=== PATIENT | female | born 1990 | race Caucasian/White ===

== ENCOUNTER 2022-02-01 11:10 | Inpatient (IN) | payer OTHER, SELFPAY ==
[2022-02-01 11:37] VITALS: BP 147/89; PULSE 104; RESP 16; TEMP 37.6; O2SAT 97; BMI 25.6
[2022-02-01] MEDS: ONDANSETRON 4 MG/2 ML INJ IV ×2 (11:49→18:29)
[2022-02-01 11:59] LABS: Appearance Urine UA CLEAR; Bilirubin Urine UA 1+ (NEGATIVE); Color Urine UA YELLOW; Glucose Urine UA NEGATIVE (Negative); Ketones Urine UA 3+ (NEGATIVE); Leukocyte Esterase Urine UA NEGATIVE (NEGATIVE); Nitrite Urine UA NEGATIVE (Negative); Occult Blood Urine UA NEGATIVE (Negative); Protein Urine UA 1+ (Negative); Urobilinogen Urine UA 0.2 E.U./dL (0.2)
[2022-02-01 12:00] LABS: pH Urine UA 6.5 (4.5-8.0)
[2022-02-01 12:01] LABS: Ictotest Urine Negative (Negative)
[2022-02-01 12:04] LABS: Bacteria Urine None Seen; Culture Indicated Urine Cult Not Indicated; Mucus Urine 2+ (Negative); RBC Urine None Seen (0-5/HPF); WBC Urine None Seen (0-5/HPF)
[2022-02-01 12:05] LABS: Pregnancy Test Urine Negative (Negative)
[2022-02-01 12:17] LABS: COVID19 -Nasal RAPID Negative (Negative)
--- NOTE | 2022-02-01 12:58 | ED_ITS ---
HPI - Nausea/Vomiting/Diarrhea <MAINE Cronin - Last Filed: 02/01/22 16:55> General Chief complaint: Nausea/Vomiting/Diarrhea Stated complaint: Vomiting for 48 hours, upper abd pain Time Seen by Provider: 02/01/22 12:28 Source: patient Mode of arrival: Ambulatory History of Present Illness HPI Narrative: This is a 31-year-old female presents to the emergency department complaining of pain in her upper abdomen which has been over the last 3 days, complains of nausea and vomiting, epigastric pain and denies any other symptoms other than diarrhea. She states she took a COVID test this morning and it was negative, states the only abdominal surgery she is had was a in 2017. She denies fever, chills, dysuria, urinary frequency or urgency. States that her urine was dark in color today. She went to [facility] last night and received a GI cocktail, Zofran, and Ativan and states that it helped with her nausea because she was tired but the GI cocktail was vomited up immediately and the other 2 medications helped with her emesis. She states that they did not do lab work or any other tests. She denies drinking alcohol, states that she uses marijuana occasionally but denies any other substance use. She has a mild fever in triage today at 99.6. Related Data Home Medications Medication Instructions Recorded Confirmed sertraline 50 mg tablet 50 mg PO DAILY 02/01/22 02/01/22 Allergies Allergy/AdvReac Type Severity Reaction Status Date / Time No Known Drug Allergies Allergy Verified 02/01/22 11:37 Review of Systems <MAINE Cronin - Last Filed: 02/01/22 16:55> Review of Systems Narrative: Review of systems is negative for acute abnormalities unless otherwise noted in HPI Patient History <MAINE Cronin - Last Filed: 02/01/22 16:55> Social History household members: spouse and children Exam <MAINE Cronin - Last Filed: 02/01/22 16:55> Narrative Exam Narrative: Reviewed vitals signs and nursing notes. General: cooperative, comfortable, in no acute distress, well groomed HEENT: symmetrical facial expressions, moist mucous membranes Cardiovascular: regular rate and rhythm, no peripheral edema, warm extremities Respiratory: normal effort, able to speak in complete sentences, without wheezing, stridor, or abnormal breath sounds. No retractions or tachypnea. GI: abdomen soft, tender to palpation in her epigastrium, nondistended, without masses, rebound tenderness or exquisite tenderness with exam. No CVA tenderness MSK: moves all extremities, neurovascularly intact, no weakness, normal tone Skin: brisk capillary refill, without pallor or erythema Neuro: normal speech and cognition, A&O x3, ambulatory, clear speech Psych: mental status is grossly normal, congruent mood, normal affect, pleasant and cooperative Initial Vital Signs Initial Vital Signs: Vital Signs Temperature 99.6 F 02/01/22 11:37 Pulse Rate 104 H 02/01/22 11:37 Respiratory Rate 16 02/01/22 11:37 Blood Pressure 147/89 H 02/01/22 11:37 Pulse Oximetry 97 02/01/22 11:37 Oxygen Delivery Method 02/01/22 11:37 <Caryl Ryan MD - Last Filed: 02/02/22 05:10> Initial Vital Signs Initial Vital Signs: Vital Signs Temperature 99.6 F 02/01/22 11:37 Pulse Rate 104 H 02/01/22 11:37 Respiratory Rate 16 02/01/22 11:37 Blood Pressure 147/89 H 02/01/22 11:37 Pulse Oximetry 97 02/01/22 11:37 Oxygen Delivery Method 02/01/22 11:37 Course <MAINE Cronin - Last Filed: 02/01/22 16:55> Orders Ordered: ED Orders 02/02/22 05:00 Complete Blood Count AUTO DIFF DAILY Comprehensive Metabolic Panel DAILY Lipid Panel Routine Magnesium DAILY 02/03/22 05:00 Complete Blood Count AUTO DIFF DAILY Comprehensive Metabolic Panel DAILY Magnesium DAILY 02/04/22 05:00 Complete Blood Count AUTO DIFF DAILY Comprehensive Metabolic Panel DAILY Magnesium DAILY Acetaminophen (Acetaminophen 325 Mg Tablet) 975 mg PO Q8H PRN PRN Reason: Pain, Mild (1-3) Sodium Chloride (Normal Saline 0.9%) 1,000 mls @ 100 mls/hr IV CONT SANCHEZ Last Admin: 02/02/22 04:22 Dose: 100 mls/hr Documented By: Infusion: 02/02/22 04:00 Dose: 100 mls/hr Documented By: Admin: 02/01/22 18:00 Dose: 100 mls/hr Documented By: SINGH Ketorolac Tromethamine (Ketorolac 30 Mg/Ml Vial) 15 mg IV Q6H SANCHEZ Stop: 02/04/22 17:11 Last Admin: 02/01/22 23:00 Dose: Not Given Documented By: Admin: 02/01/22 18:25 Dose: 15 mg Documented By: SINGH Ondansetron HCl (Ondansetron 4 Mg/2 Ml Inj) 4 mg IV Q8HR PRN PRN Reason: Nausea And Vomiting Last Admin: 02/01/22 18:29 Dose: 4 mg Documented By: SINGH Oxycodone HCl (Oxycodone Ir 5 Mg Tablet) 5 mg PO Q4HR PRN PRN Reason: Pain, Moderate (4-6) Discontinued Medications Diazepam (Diazepam 10 Mg/2 Ml Syringe) 2 mg IV NOW ONE Stop: 02/01/22 14:56 Last Admin: 02/01/22 16:30 Dose: Not Given Documented By: ROSA Hydromorphone HCl (Hydromorphone 0.5 Mg Inj) 0.5 mg IV NOW ONE Stop: 02/01/22 13:15 Last Admin: 02/01/22 13:40 Dose: 0.5 mg Documented By: MCKENNA Lactated Ringer's (Lactated Ringers) 1,000 mls @ 1,000 mls/hr IV BOLUS ONE Stop: 02/01/22 14:00 Last Infusion: 02/01/22 15:06 Dose: 0 mls/hr Documented By: Admin: 02/01/22 13:39 Dose: 1,000 mls/hr Documented By: MCKENNA Ketorolac Tromethamine (Ketorolac 30 Mg/Ml Vial) 15 mg IV NOW ONE Stop: 02/01/22 13:14 Last Admin: 02/01/22 13:40 Dose: 15 mg Documented By: MCKENNA Ondansetron HCl (Ondansetron 4 Mg/2 Ml Inj) 4 mg IV NOW ONE Stop: 02/01/22 11:43 Last Admin: 02/01/22 11:49 Dose: 4 mg Documented By: SCOTT Pantoprazole Sodium (Pantoprazole 40 Mg Vial) 20 mg IV NOW ONE Stop: 02/01/22 12:46 Last Admin: 02/01/22 13:39 Dose: 20 mg Documented By: MCKENNA Reevaluation(s) Reevaluation #1: Patient states that her pain feels much better and her vomiting has stopped, she states that she still feels nauseated. Ordered Valium Reevaluation #2: Patient states that her pain is controlled and her vomiting has improved. Consultations Consultation #1: Consultation with Dr. Chapmna for admission, he accepts patient to observation status for pancreatitis, cholelithiasis and intractable nausea and vomiting Vital Signs Vital signs: Vital Signs - 8 hr 02/01/22 11:37 02/01/22 14:52 Temperature 99.6 F Pulse Rate 104 H 74 Respiratory Rate 16 18 Blood Pressure 147/89 H 114/79 Pulse Oximetry 97 100 Oxygen Delivery Method Room Air Room Air <Caryl Ryan MD - Last Filed: 02/02/22 05:10> Orders Ordered: ED Orders 02/02/22 05:00 Complete Blood Count AUTO DIFF DAILY Comprehensive Metabolic Panel DAILY Lipid Panel Routine Magnesium DAILY 02/03/22 05:00 Complete Blood Count AUTO DIFF DAILY Comprehensive Metabolic Panel DAILY Magnesium DAILY 02/04/22 05:00 Complete Blood Count AUTO DIFF DAILY Comprehensive Metabolic Panel DAILY Magnesium DAILY Acetaminophen (Acetaminophen 325 Mg Tablet) 975 mg PO Q8H PRN PRN Reason: Pain, Mild (1-3) Sodium Chloride (Normal Saline 0.9%) 1,000 mls @ 100 mls/hr IV CONT SANCHEZ Last Admin: 02/02/22 04:22 Dose: 100 mls/hr Documented By: Infusion: 02/02/22 04:00 Dose: 100 mls/hr Documented By: Admin: 02/01/22 18:00 Dose: 100 mls/hr Documented By: SINGH Ketorolac Tromethamine (Ketorolac 30 Mg/Ml Vial) 15 mg IV Q6H SANCHEZ Stop: 02/04/22 17:11 Last Admin: 02/01/22 23:00 Dose: Not Given Documented By: Admin: 02/01/22 18:25 Dose: 15 mg Documented By: SINGH Ondansetron HCl (Ondansetron 4 Mg/2 Ml Inj) 4 mg IV Q8HR PRN PRN Reason: Nausea And Vomiting Last Admin: 02/01/22 18:29 Dose: 4 mg Documented By: SINGH Oxycodone HCl (Oxycodone Ir 5 Mg Tablet) 5 mg PO Q4HR PRN PRN Reason: Pain, Moderate (4-6) Discontinued Medications Diazepam (Diazepam 10 Mg/2 Ml Syringe) 2 mg IV NOW ONE Stop: 02/01/22 14:56 Last Admin: 02/01/22 16:30 Dose: Not Given Documented By: ROSA Hydromorphone HCl (Hydromorphone 0.5 Mg Inj) 0.5 mg IV NOW ONE Stop: 02/01/22 13:15 Last Admin: 02/01/22 13:40 Dose: 0.5 mg Documented By: MCKENNA Lactated Ringer's (Lactated Ringers) 1,000 mls @ 1,000 mls/hr IV BOLUS ONE Stop: 02/01/22 14:00 Last Infusion: 02/01/22 15:06 Dose: 0 mls/hr Documented By: Admin: 02/01/22 13:39 Dose: 1,000 mls/hr Documented By: MCKENNA Ketorolac Tromethamine (Ketorolac 30 Mg/Ml Vial) 15 mg IV NOW ONE Stop: 02/01/22 13:14 Last Admin: 02/01/22 13:40 Dose: 15 mg Documented By: MCKENNA Ondansetron HCl (Ondansetron 4 Mg/2 Ml Inj) 4 mg IV NOW ONE Stop: 02/01/22 11:43 Last Admin: 02/01/22 11:49 Dose: 4 mg Documented By: SCOTT Pantoprazole Sodium (Pantoprazole 40 Mg Vial) 20 mg IV NOW ONE Stop: 02/01/22 12:46 Last Admin: 02/01/22 13:39 Dose: 20 mg Documented By: MCKENNA Vital Signs Vital signs: Vital Signs - 8 hr 02/01/22 11:37 02/01/22 14:52 Temperature 99.6 F Pulse Rate 104 H 74 Respiratory Rate 16 18 Blood Pressure 147/89 H 114/79 Pulse Oximetry 97 100 Oxygen Delivery Method Room Air Room Air MDM - Nausea/Vomiting/Diarrhea <MAINE Cronin - Last Filed: 02/01/22 16:55> Lab Data Result diagrams: 02/01/22 11:42 02/01/22 11:42 Labs: Lab Results 02/01/22 02/01/22 02/01/22 Range/Units 11:35 11:35 11:35 WBC (4.5-11.0) X10^3/uL RBC (4.0-5.2) X10^6/uL Hgb (12.0-16.0) g/dL Hct (36-46) % MCV (80-100) fL MCH (26-34) PG MCHC (30-36) % RDW (11.6-14.8) % Plt Count (150-400) X10^3/uL Neut % (Auto) (50-75) % Lymph % (Auto) (25-40) % [place] % (Auto) (3-14) % Eos % (Auto) (2-4) % Baso % (Auto) (0-2) % Neut # (Auto) (0624-8858) /uL Lymph # (Auto) (7070-1682) /uL [place] # (Auto) (0-900) /uL Eos # (Auto) (0-450) /uL Baso # (Auto) (0-100) /uL PT (10.1-12.7) SECONDS INR (0.9-1.3) APTT (26-36) SECONDS Sodium (137-145) mmol/L Potassium (3.4-5.1) mmol/L Chloride (98-107) mmol/L Carbon Dioxide (22-32) mmol/L BUN (7-17) mg/dL Creatinine (0.52-1.04) mg/dL Estimated GFR (>60) mL/min BUN/Creatinine Ratio (6-22) Glucose (70-100) mg/dL Calcium (8.4-10.2) mg/dL Total Bilirubin (0.2-1.3) mg/dL AST (14-36) IU/L ALT (<35) IU/L Alkaline Phosphatase (38-126) U/L C-Reactive Protein (<1.0) mg/dL Total Protein (6.3-8.2) g/dL Albumin (3.5-5.0) g/dL Globulin (1.7-4.1) g/dL Albumin/Globulin Ratio (1.0-2.8) Lipase Urine Color Yellow Urine Appearance Clear Urine pH 6.5 (4.5-8.0) Ur Specific [place] 1.020 (1.000-1.035) Urine Protein 1+ H (Negative) Urine Glucose (UA) Negative (Negative) g/dL Urine Ketones 3+ H (NEGATIVE) Urine Occult Blood Negative (Negative) Urine Nitrate Negative (Negative) Urine Bilirubin 1+ H (NEGATIVE) Ur Bilirubin Confirm Negative (Negative) Urine Urobilinogen 0.2 (0.2) E.U./dL Ur Leukocyte Esterase Negative (NEGATIVE) Urine RBC None seen (0-5/HPF) Urine WBC None seen (0-5/HPF) Urine Bacteria None seen (None) Urine Mucus 2+ H (Negative) Ur Culture Indicated? Cult not indicated Urine Test Negative (Negative) SARS-CoV-2 (PCR) Negative (Negative) 02/01/22 02/01/22 02/01/22 Range/Units 11:40 11:40 11:42 WBC 11.0 (4.5-11.0) X10^3/uL RBC 5.04 (4.0-5.2) X10^6/uL Hgb 14.0 (12.0-16.0) g/dL Hct 41.0 (36-46) % MCV 81.4 (80-100) fL MCH 27.7 (26-34) PG MCHC 34.0 (30-36) % RDW 14.1 (11.6-14.8) % Plt Count 220 (150-400) X10^3/uL Neut % (Auto) 80.9 H (50-75) % Lymph % (Auto) 11.5 L (25-40) % [place] % (Auto) 7.0 (3-14) % Eos % (Auto) 0.5 L (2-4) % Baso % (Auto) 0.1 (0-2) % Neut # (Auto) 8900 H (9221-2901) /uL Lymph # (Auto) 1300 (2574-4782) /uL [place] # (Auto) 800 (0-900) /uL Eos # (Auto) 100 (0-450) /uL Baso # (Auto) 0 (0-100) /uL PT (10.1-12.7) SECONDS INR (0.9-1.3) APTT (26-36) SECONDS Sodium (137-145) mmol/L Potassium (3.4-5.1) mmol/L Chloride (98-107) mmol/L Carbon Dioxide (22-32) mmol/L BUN (7-17) mg/dL Creatinine (0.52-1.04) mg/dL Estimated GFR (>60) mL/min BUN/Creatinine Ratio (6-22) Glucose (70-100) mg/dL Calcium (8.4-10.2) mg/dL Total Bilirubin (0.2-1.3) mg/dL AST (14-36) IU/L ALT (<35) IU/L Alkaline Phosphatase (38-126) U/L C-Reactive Protein 1.1 H (<1.0) mg/dL Total Protein (6.3-8.2) g/dL Albumin (3.5-5.0) g/dL Globulin (1.7-4.1) g/dL Albumin/Globulin Ratio (1.0-2.8) Lipase Cancelled Urine Color Urine Appearance Urine pH (4.5-8.0) Ur Specific [place] (1.000-1.035) Urine Protein (Negative) Urine Glucose (UA) (Negative) g/dL Urine Ketones (NEGATIVE) Urine Occult Blood (Negative) Urine Nitrate (Negative) Urine Bilirubin (NEGATIVE) Ur Bilirubin Confirm (Negative) Urine Urobilinogen (0.2) E.U./dL Ur Leukocyte Esterase (NEGATIVE) Urine RBC (0-5/HPF) Urine WBC (0-5/HPF) Urine Bacteria (None) Urine Mucus (Negative) Ur Culture Indicated? Urine Test (Negative) SARS-CoV-2 (PCR) (Negative) 02/01/22 02/01/22 Range/Units 11:42 11:42 WBC (4.5-11.0) X10^3/uL RBC (4.0-5.2) X10^6/uL Hgb (12.0-16.0) g/dL Hct (36-46) % MCV (80-100) fL MCH (26-34) PG MCHC (30-36) % RDW (11.6-14.8) % Plt Count (150-400) X10^3/uL Neut % (Auto) (50-75) % Lymph % (Auto) (25-40) % [place] % (Auto) (3-14) % Eos % (Auto) (2-4) % Baso % (Auto) (0-2) % Neut # (Auto) (7056-2107) /uL Lymph # (Auto) (8661-0317) /uL [place] # (Auto) (0-900) /uL Eos # (Auto) (0-450) /uL Baso # (Auto) (0-100) /uL PT 13.6 H (10.1-12.7) SECONDS INR 1.2 (0.9-1.3) APTT 36 (26-36) SECONDS Sodium 140 (137-145) mmol/L Potassium 3.7 (3.4-5.1) mmol/L Chloride 97 L (98-107) mmol/L Carbon Dioxide 27 (22-32) mmol/L BUN 15 (7-17) mg/dL Creatinine 0.91 (0.52-1.04) mg/dL Estimated GFR > 60 (>60) mL/min BUN/Creatinine Ratio 16.5 (6-22) Glucose 100 (70-100) mg/dL Calcium 10.2 (8.4-10.2) mg/dL Total Bilirubin 0.7 (0.2-1.3) mg/dL AST 37 H (14-36) IU/L ALT 20 (<35) IU/L Alkaline Phosphatase 62 (38-126) U/L C-Reactive Protein (<1.0) mg/dL Total Protein 8.8 H (6.3-8.2) g/dL Albumin 5.2 H (3.5-5.0) g/dL Globulin 3.6 (1.7-4.1) g/dL Albumin/Globulin Ratio 1.4 (1.0-2.8) Lipase 2310 H Urine Color Urine Appearance Urine pH (4.5-8.0) Ur Specific [place] (1.000-1.035) Urine Protein (Negative) Urine Glucose (UA) (Negative) g/dL Urine Ketones (NEGATIVE) Urine Occult Blood (Negative) Urine Nitrate (Negative) Urine Bilirubin (NEGATIVE) Ur Bilirubin Confirm (Negative) Urine Urobilinogen (0.2) E.U./dL Ur Leukocyte Esterase (NEGATIVE) Urine RBC (0-5/HPF) Urine WBC (0-5/HPF) Urine Bacteria (None) Urine Mucus (Negative) Ur Culture Indicated? Urine Test (Negative) SARS-CoV-2 (PCR) (Negative) Imaging Data US - abdomen: Radiologist's Impression: PROCEDURE:? US ABDOMEN LIMITED ? INDICATIONS:? RIGHT UPPER QUADRANT PAIN ?GASTRITIS VERSUS CHOLECYSTITIS ? TECHNIQUE:? Real-time scanning was performed of the abdominal and retroperitoneal organs, with image documentation.? ? COMPARISON:? None. ? FINDINGS:? ? Liver:? Liver is normal in size and homogeneous in echotexture.? ? Gallbladder:? Stones are seen in dependent portion of gallbladder lumen.? There is no gallbladder wall thickening or pericholecystic fluid.? No sonographic Dasilva sign. ? Biliary ducts:? Intrahepatic bile ducts are non-dilated.? Extrahepatic bile duct caliber measures 2.7 mm.? Normal is 6-7 mm or less in diameter, or 10 mm or less post-cholecystectomy.? ? Pancreas:? Visualized portions of the pancreas are sonographically normal.? Miscellaneous:? No free abdominal fluid.? ? ? IMPRESSION:? Cholelithiasis without sonographic evidence of acute cholecystitis.? No biliary ductal dilatation. ? ? Dictated by: Rosalio Orta M.D. on 02/01/2022 at 13:48 ? ? Approved by: Rosalio Orta M.D. on 02/01/2022 at 14:09 ? CT scan - abdomen/pelvis: Radiologist's Impression: PROCEDURE:? CT ABDOMEN PELVIS W CON ? INDICATIONS:? pancreatitis? ? TECHNIQUE:? After the administration of oral and IV contrast, axial sections were acquired from the lung bases to the pubic symphysis.? Coronal and sagittal reformats were performed.? For radiation dose reduction, the following was used:? automated exposure control, adjustment of mA and/or kV according to patient size. ? COMPARISON:? [facility], US ABDOMEN LIMITED, 02/01/2022, 13:29. ? FINDINGS:? Image quality:? Excellent.? ? Lung bases:? Unremarkable.? ? Heart:? No significant findings. ? ? ABDOMEN: Liver:? Unremarkable.? ? Gallbladder:? Air containing stones are seen in dependent portion of gallbladder lumen.? No gallbladder wall thickening or pericholecystic fluid. Biliary ducts:? Unremarkable.? ? Pancreas:? No discrete pancreatic lesion.? No peripancreatic inflammatory changes.? ? Spleen:? Unremarkable.? ? Adrenal Glands:? Unremarkable.? ? Kidneys and Ureters:? Unremarkable.? ? ? Stomach and Bowel:? Stomach, small bowel loops, and colon are unremarkable.? Appendix is visualized and is within normal limits. Peritoneum:? No abnormal intraperitoneal fluid.? No free air.? ? Ventral Wall: ? No hernia.? Abdominal Nodes:? No retroperitoneal or mesenteric adenopathy by size criteria.? Vessels:? Aorta and inferior vena cava are normal in size.? ? PELVIS: Pelvic Organs:? Unremarkable.? ? Bladder:? Unremarkable.? ? Pelvic Nodes: No enlarged lymph nodes.? Miscellaneous: No inguinal hernias are seen. ? ? ? Bones:? No suspicious bony lesion.? No acute vertebral body compression fract ure. ? ? IMPRESSION:? ? 1. Cholelithiasis without CT evidence of acute cholecystitis. 2. No biliary ductal dilatation. 3.? Pancreas is within normal limits.? No peripancreatic inflammatory changes or fluid.? Please correlate with patient's amylase and lipase levels. 4. No bowel obstruction.? No abnormal bowel wall thickening.? No free fluid or free air.? Normal appendix.? ? ? Dictated by: Rosalio Orta M.D. on 02/01/2022 at 14:33 ? ? Approved by: Rosalio Orta M.D. on 02/01/2022 at 14:36 ? [facility] Narrative Medical decision making narrative: This is a 31-year-old female presents to the emergency department for vomiting for the last 2-3 days with epigastric pain, she presented with a mild fever, tachycardia with a rate of 104, with normal vital signs in states that she does not know why she has been vomiting. Only abdominal surgery history is a C- section 2017. Patient does not drink alcohol. Her lab work overall is reassuring, there is no leukocytosis or anemia, no electrolyte abnormalities however her CRP is mildly elevated at 1.1, lipase is elevated at 2310, her urine shows protein, ketones and bilirubin but was negative for leukocyte esterase bacteria, her COVID PCR is negative. Abdominal ultrasound shows cholelithiasis without cholecystitis, no biliary ductal dilatation, extrahepatic bile duct shelby margie measures 2.[address] abdomen pelvis shows cholelithiasis without CT evidence of cholecystitis, no biliary ductal dilatation, pancreas was evaluated within normal limits and no peripancreatic inflammatory changes or fluid. Patient does not have a bowel obstruction and no abnormal bowel wall thickening, no free fluid or free air with a normal appendix. Clinically patient has improved from her nausea and vomiting but still remains nauseated, she has had occasional emesis since being treated with Zofran initially. She was given 1 L of lactated Ringer's, later given 2 mg of IV Valium for nausea, her pain was treated with hydromorphone and ketorolac. Consultation with Dr. Chapman for admission for intractable nausea and vomiting, pancreatitis with cholelithiasis and he accepts patient to observation status. Patient was informed of lab and imaging results, pertinent diagnoses, consulting physicians, and treatment plan. I have spoken with the patient in regard to admission, patient understands and agrees. I have communicated the patient's evaluation and treatment plan to the admitting physician who agrees with admission. All questions answered at this time. <Caryl Ryan MD - Last Filed: 02/02/22 05:10> Lab Data Labs: Lab Results 02/01/22 02/01/22 02/01/22 Range/Units 11:35 11:35 11:35 WBC (4.5-11.0) X10^3/uL RBC (4.0-5.2) X10^6/uL Hgb (12.0-16.0) g/dL Hct (36-46) % MCV (80-100) fL MCH (26-34) PG MCHC (30-36) % RDW (11.6-14.8) % Plt Count (150-400) X10^3/uL Neut % (Auto) (50-75) % Lymph % (Auto) (25-40) % [place] % (Auto) (3-14) % Eos % (Auto) (2-4) % Baso % (Auto) (0-2) % Neut # (Auto) (9178-4030) /uL Lymph # (Auto) (1481-6196) /uL [place] # (Auto) (0-900) /uL Eos # (Auto) (0-450) /uL Baso # (Auto) (0-100) /uL PT (10.1-12.7) SECONDS INR (0.9-1.3) APTT (26-36) SECONDS Sodium (137-145) mmol/L Potassium (3.4-5.1) mmol/L Chloride (98-107) mmol/L Carbon Dioxide (22-32) mmol/L BUN (7-17) mg/dL Creatinine (0.52-1.04) mg/dL Estimated GFR (>60) mL/min BUN/Creatinine Ratio (6-22) Glucose (70-100) mg/dL Calcium (8.4-10.2) mg/dL Total Bilirubin (0.2-1.3) mg/dL AST (14-36) IU/L ALT (<35) IU/L Alkaline Phosphatase (38-126) U/L C-Reactive Protein (<1.0) mg/dL Total Protein (6.3-8.2) g/dL Albumin (3.5-5.0) g/dL Globulin (1.7-4.1) g/dL Albumin/Globulin Ratio (1.0-2.8) Lipase Urine Color Yellow Urine Appearance Clear Urine pH 6.5 (4.5-8.0) Ur Specific [place] 1.020 (1.000-1.035) Urine Protein 1+ H (Negative) Urine Glucose (UA) Negative (Negative) g/dL Urine Ketones 3+ H (NEGATIVE) Urine Occult Blood Negative (Negative) Urine Nitrate Negative (Negative) Urine Bilirubin 1+ H (NEGATIVE) Ur Bilirubin Confirm Negative (Negative) Urine Urobilinogen 0.2 (0.2) E.U./dL Ur Leukocyte Esterase Negative (NEGATIVE) Urine RBC None seen (0-5/HPF) Urine WBC None seen (0-5/HPF) Urine Bacteria None seen (None) Urine Mucus 2+ H (Negative) Ur Culture Indicated? Cult not indicated Urine Test Negative (Negative) SARS-CoV-2 (PCR) Negative (Negative) 02/01/22 02/01/22 02/01/22 Range/Units 11:40 11:40 11:42 WBC 11.0 (4.5-11.0) X10^3/uL RBC 5.04 (4.0-5.2) X10^6/uL Hgb 14.0 (12.0-16.0) g/dL Hct 41.0 (36-46) % MCV 81.4 (80-100) fL MCH 27.7 (26-34) PG MCHC 34.0 (30-36) % RDW 14.1 (11.6-14.8) % Plt Count 220 (150-400) X10^3/uL Neut % (Auto) 80.9 H (50-75) % Lymph % (Auto) 11.5 L (25-40) % [place] % (Auto) 7.0 (3-14) % Eos % (Auto) 0.5 L (2-4) % Baso % (Auto) 0.1 (0-2) % Neut # (Auto) 8900 H (3546-6290) /uL Lymph # (Auto) 1300 (8024-5467) /uL [place] # (Auto) 800 (0-900) /uL Eos # (Auto) 100 (0-450) /uL Baso # (Auto) 0 (0-100) /uL PT (10.1-12.7) SECONDS INR (0.9-1.3) APTT (26-36) SECONDS Sodium (137-145) mmol/L Potassium (3.4-5.1) mmol/L Chloride (98-107) mmol/L Carbon Dioxide (22-32) mmol/L BUN (7-17) mg/dL Creatinine (0.52-1.04) mg/dL Estimated GFR (>60) mL/min BUN/Creatinine Ratio (6-22) Glucose (70-100) mg/dL Calcium (8.4-10.2) mg/dL Total Bilirubin (0.2-1.3) mg/dL AST (14-36) IU/L ALT (<35) IU/L Alkaline Phosphatase (38-126) U/L C-Reactive Protein 1.1 H (<1.0) mg/dL Total Protein (6.3-8.2) g/dL Albumin (3.5-5.0) g/dL Globulin (1.7-4.1) g/dL Albumin/Globulin Ratio (1.0-2.8) Lipase Cancelled Urine Color Urine Appearance Urine pH (4.5-8.0) Ur Specific [place] (1.000-1.035) Urine Protein (Negative) Urine Glucose (UA) (Negative) g/dL Urine Ketones (NEGATIVE) Urine Occult Blood (Negative) Urine Nitrate (Negative) Urine Bilirubin (NEGATIVE) Ur Bilirubin Confirm (Negative) Urine Urobilinogen (0.2) E.U./dL Ur Leukocyte Esterase (NEGATIVE) Urine RBC (0-5/HPF) Urine WBC (0-5/HPF) Urine Bacteria (None) Urine Mucus (Negative) Ur Culture Indicated? Urine Test (Negative) SARS-CoV-2 (PCR) (Negative) 02/01/22 02/01/22 Range/Units 11:42 11:42 WBC (4.5-11.0) X10^3/uL RBC (4.0-5.2) X10^6/uL Hgb (12.0-16.0) g/dL Hct (36-46) % MCV (80-100) fL MCH (26-34) PG MCHC (30-36) % RDW (11.6-14.8) % Plt Count (150-400) X10^3/uL Neut % (Auto) (50-75) % Lymph % (Auto) (25-40) % [place] % (Auto) (3-14) % Eos % (Auto) (2-4) % Baso % (Auto) (0-2) % Neut # (Auto) (4459-4741) /uL Lymph # (Auto) (1032-7551) /uL [place] # (Auto) (0-900) /uL Eos # (Auto) (0-450) /uL Baso # (Auto) (0-100) /uL PT 13.6 H (10.1-12.7) SECONDS INR 1.2 (0.9-1.3) APTT 36 (26-36) SECONDS Sodium 140 (137-145) mmol/L Potassium 3.7 (3.4-5.1) mmol/L Chloride 97 L (98-107) mmol/L Carbon Dioxide 27 (22-32) mmol/L BUN 15 (7-17) mg/dL Creatinine 0.91 (0.52-1.04) mg/dL Estimated GFR > 60 (>60) mL/min BUN/Creatinine Ratio 16.5 (6-22) Glucose 100 (70-100) mg/dL Calcium 10.2 (8.4-10.2) mg/dL Total Bilirubin 0.7 (0.2-1.3) mg/dL AST 37 H (14-36) IU/L ALT 20 (<35) IU/L Alkaline Phosphatase 62 (38-126) U/L C-Reactive Protein (<1.0) mg/dL Total Protein 8.8 H (6.3-8.2) g/dL Albumin 5.2 H (3.5-5.0) g/dL Globulin 3.6 (1.7-4.1) g/dL Albumin/Globulin Ratio 1.4 (1.0-2.8) Lipase 2310 H Urine Color Urine Appearance Urine pH (4.5-8.0) Ur Specific [place] (1.000-1.035) Urine Protein (Negative) Urine Glucose (UA) (Negative) g/dL Urine Ketones (NEGATIVE) Urine Occult Blood (Negative) Urine Nitrate (Negative) Urine Bilirubin (NEGATIVE) Ur Bilirubin Confirm (Negative) Urine Urobilinogen (0.2) E.U./dL Ur Leukocyte Esterase (NEGATIVE) Urine RBC (0-5/HPF) Urine WBC (0-5/HPF) Urine Bacteria (None) Urine Mucus (Negative) Ur Culture Indicated? Urine Test (Negative) SARS-CoV-2 (PCR) (Negative) Discharge Plan Departure Patient Disposition: Admitted as Observation Clinical Impression: Intractable nausea and vomiting Pancreatitis, acute Qualifiers: Pancreatitis type: unspecified pancreatitis type Acute pancreatitis complication: unspecified Qualified Code(s): K85.90 - Acute pancreatitis without necrosis or infection, unspecified Cholelithiases Qualifiers: Cholelithiasis location: gallbladder Cholecystitis presence: without cholecystitis Biliary obstruction: without biliary obstruction Qualified Code(s): K80.20 - Calculus of gallbladder without cholecystitis without obstruction Admit Date/Time: 02/01/22 16:24 Admit Provider: Nathaniel Escobar <Caryl Ryan MD - Last Filed: 02/02/22 05:10> Cosign ED Attending Cosignature Attestation: I was immediately available in the department for consultation throughout this patient's visit. I agree with documentation as above. Caryl Ryan MD
--- NOTE | 2022-02-01 13:01 | DI.US.S_ITS ---
PROCEDURE: US ABDOMEN LIMITED INDICATIONS: RIGHT UPPER QUADRANT PAIN ?GASTRITIS VERSUS CHOLECYSTITIS TECHNIQUE: Real-time scanning was performed of the abdominal and retroperitoneal organs, with image documentation. COMPARISON: None. FINDINGS: Liver: Liver is normal in size and homogeneous in echotexture. Gallbladder: Stones are seen in dependent portion of gallbladder lumen. There is no gallbladder wall thickening or pericholecystic fluid. No sonographic Dasilva sign. Biliary ducts: Intrahepatic bile ducts are non-dilated. Extrahepatic bile duct caliber measures 2.7 mm. Normal is 6-7 mm or less in diameter, or 10 mm or less post-cholecystectomy. Pancreas: Visualized portions of the pancreas are sonographically normal. Miscellaneous: No free abdominal fluid. IMPRESSION: Cholelithiasis without sonographic evidence of acute cholecystitis. No biliary ductal dilatation. Dictated by: Rosalio Orta M.D. on 02/01/2022 at 13:48 Approved by: Rosalio Orta M.D. on 02/01/2022 at 14:09
[2022-02-01 13:05] LABS: Add Manual Diff / Slide Review NO; Basophils Absolute Auto 0 /uL (0-100); Basophils Percent Auto 0.1 % (0-2); Eosinophils Absolute Auto 100 /uL (0-450); Eosinophils Percent Auto 0.5 % (2-4); Lymphocytes Absolute Auto 1300 /uL (1100-4500); Lymphocytes Percent Auto 11.5 % (25-40); Mean Corpuscular Hemoglobin 27.7 PG (26-34); Mean Corpuscular Volume 81.4 fL (80-100); Monocytes Absolute Auto 800 /uL (0-900); Neutrophils Absolute Auto 8900 /uL (1500-7000); Neutrophils Percent Auto 80.9 % (50-75); Platelet Count 220 X10^3/uL (150-400); Red Blood Cell Count 5.04 X10^6/uL (4.0-5.2); Red Cell Distribution Width 14.1 % (11.6-14.8)
[2022-02-01 13:06] LABS: C-Reactive Protein Quant 1.1 mg/dL (<1.0)
[2022-02-01 13:06] LABS: INR 1.2 (0.9-1.3); Prothrombin Time 13.6 SECONDS (10.1-12.7)
[2022-02-01 13:08] LABS: PTT Partial Thromboplastin Tim 36 SECONDS (26-36)
[2022-02-01 13:14] LABS: Alanine Aminotransferase 20 IU/L (<35); Albumin 5.2 g/dL (3.5-5.0); Albumin Globulin Ratio 1.4 (1.0-2.8); Alkaline Phosphatase 62 U/L (38-126); Aspartate Aminotransferase 37 IU/L (14-36); BUN Creatinine Ratio 16.5 (6-22); Bilirubin Total 0.7 mg/dL (0.2-1.3); Blood Urea Nitrogen 15 mg/dL (7-17); Calcium 10.2 mg/dL (8.4-10.2); Carbon Dioxide 27 mmol/L (22-32); Chloride 97 mmol/L (98-107); Estimated Glomerular Filt Rate > 60 mL/min (>60); Globulin 3.6 g/dL (1.7-4.1); Glucose 100 mg/dL (70-100); HEMOLYSIS < 15 (0-50); Potassium 3.7 mmol/L (3.4-5.1); Sodium 140 mmol/L (137-145); Total Protein 8.8 g/dL (6.3-8.2)
[2022-02-01 13:15] LABS: Lipase 2310 U/L (23-300)
[2022-02-01] MEDS: PANTOPRAZOLE 40 MG VIAL 20 MG IV (13:39)
[2022-02-01] MEDS: LACTATED RINGERS 1,000 ML 1000 ML IV (13:39)
[2022-02-01] MEDS: KETOROLAC 30 MG/ML VIAL 15 MG IV ×2 (13:40→18:25)
[2022-02-01] MEDS: HYDROMORPHONE 0.5 MG INJ IV (13:40)
--- NOTE | 2022-02-01 13:44 | DI.CT.S_ITS ---
PROCEDURE: CT ABDOMEN PELVIS W CON INDICATIONS: pancreatitis? TECHNIQUE: After the administration of oral and IV contrast, axial sections were acquired from the lung bases to the pubic symphysis. Coronal and sagittal reformats were performed. For radiation dose reduction, the following was used: automated exposure control, adjustment of mA and/or kV according to patient size. COMPARISON: [facility], , US ABDOMEN LIMITED, 02/01/2022, 13:29. FINDINGS: Image quality: Excellent. Lung bases: Unremarkable. Heart: No significant findings. ABDOMEN: Liver: Unremarkable. Gallbladder: Air containing stones are seen in dependent portion of gallbladder lumen. No gallbladder wall thickening or pericholecystic fluid. Biliary ducts: Unremarkable. Pancreas: No discrete pancreatic lesion. No peripancreatic inflammatory changes. Spleen: Unremarkable. Adrenal Glands: Unremarkable. Kidneys and Ureters: Unremarkable. Stomach and Bowel: Stomach, small bowel loops, and colon are unremarkable. Appendix is visualized and is within normal limits. Peritoneum: No abnormal intraperitoneal fluid. No free air. Ventral Wall: No hernia. Abdominal Nodes: No retroperitoneal or mesenteric adenopathy by size criteria. Vessels: Aorta and inferior vena cava are normal in size. PELVIS: Pelvic Organs: Unremarkable. Bladder: Unremarkable. Pelvic Nodes: No enlarged lymph nodes. Miscellaneous: No inguinal hernias are seen. Bones: No suspicious bony lesion. No acute vertebral body compression fracture. IMPRESSION: 1. Cholelithiasis without CT evidence of acute cholecystitis. 2. No biliary ductal dilatation. 3. Pancreas is within normal limits. No peripancreatic inflammatory changes or fluid. Please correlate with patient's amylase and lipase levels. 4. No bowel obstruction. No abnormal bowel wall thickening. No free fluid or free air. Normal appendix. Dictated by: Rosalio Orta M.D. on 02/01/2022 at 14:33 Approved by: Rosalio Orta M.D. on 02/01/2022 at 14:36
[2022-02-01 14:52] VITALS: BP 114/79; PULSE 74; RESP 18; O2SAT 100
[2022-02-01 16:41] VITALS: BP 115/81; PULSE 77; RESP 16; O2SAT 99
[2022-02-01 17:01] VITALS: BMI 25.6
[2022-02-01 17:12] VITALS: BP 135/88; PULSE 86; RESP 22; TEMP 36.3; O2SAT 100
[2022-02-01] MEDS: SODIUM CHLORIDE 0.9% 1,000 ML 100 ML IV (18:00)
--- NOTE | 2022-02-01 19:40 | PC.NURSE ---
pt Arrived from ED at 1710 settled into room, c/o nausea and mild abdominal pain. Able to tolerate minimal amounts of clear liquid. NS at 100ml/hr
[2022-02-01 20:16] VITALS: BP 128/84; PULSE 57; RESP 18; TEMP 35.9; O2SAT 100
--- NOTE | 2022-02-01 21:21 | P.HP_ITS ---
History of Present Illness History of Present Illness Date Patient Seen: 02/01/22 Time Patient Seen: 20:00 Chief complaint: Vomiting for 48 hours, upper abd pain Narrative: Ms. Núñez is a 31W with PMH of depression who presents to the hospital with nausea, vomiting, abdominal pain. She was in a normal state of health but over the last couple days have developed first nausea, diarrhea, vomiting, and then started developing epigastric pain. She had no fevers/chills. She has no sick contacts. She presented to the ED at another hospital yesterday and received symptomatic medications with ativan, zofran and was ultimately discharged home. She continued to feel poorly with continued abdominal pain, nausea, and vomiting and so presented to the hospital today. She does not drink alcohol. She has no new medications, or herbal supplements. Only medication sertraline. In the ED workup was done, vitals notable for temp 99.6, heart rate 104, blood pressure 147/89. Labs notable for WBC 11, hgb 14, plts 220. Lipase 2310. AST 37/ALT 20, bili 0.7. Ultrasound abdomen showed cholelithiasis with no biliary duct dilation. CT showed normal pancreas, cholelithiasis with no cholecystitis. She was given fluids, valium, dilaudid, toradol and admitted for further tr eatment. Patient History Family & Social History Social History: household members spouse,children Prior Living Arrangements House Safety & Behavioral: Feels Safe in Current Yes Environment Been Physically Hurt or No Threatened By a Person Tobacco & Substance use: Tobacco type cannabis/marijuana alcohol intake frequency holiday/special occasion Substance Use Type marijuana Meds Home Medications and Allergies Home Medications Medication Instructions Recorded Confirmed Type sertraline 50 mg tablet 50 mg PO DAILY 02/01/22 02/01/22 History Allergies Allergy/AdvReac Type Severity Reaction Status Date / Time No Known Drug Allergies Allergy Verified 02/01/22 11:37 Review of Systems Review of Systems Narrative: 14 systems reviewed and negative aside from what is noted in HPI Exam Vital Signs (past 8 hours): - 02/01/22 14:52 02/01/22 16:41 02/01/22 17:12 Temperature 97.4 F L Pulse Rate 74 77 86 Respiratory Rate 18 16 22 Blood Pressure 114/79 115/81 135/88 Pulse Oximetry 100 99 100 Oxygen Delivery Method Room Air Room Air Oxygen Flow Rate 0 02/01/22 17:12 02/01/22 20:16 02/01/22 19:00 Temperature 96.7 F L Pulse Rate 57 L Respiratory Rate 18 Blood Pressure 128/84 Pulse Oximetry 100 100 Oxygen Delivery Method Room Air Room Air Oxygen Flow Rate 0 02/01/22 21:12 Temperature Pulse Rate Respiratory Rate Blood Pressure Pulse Oximetry Oxygen Delivery Method Room Air Oxygen Flow Rate Oxygen Delivery Method Room Air Oxygen Flow Rate 0 Narrative Exam Narrative: GEN: distress due pain and nausea HEENT: moist mucous membranes, PERRL NECK: trachea midline, no JVD CV: regular rate and rhythm, no murmurs PULM: clear bilaterally, no wheezes, rhonchi, rales ABD: soft, tender in epigastrum, no rebound/guarding, normal bowel sounds EXT: warm and well perfused, with no edema NEURO: awake, alert, oriented, no focal deficits Objective Labs Result Diagrams: 02/01/22 11:42 02/01/22 11:42 Labs: Laboratory Results - last 24 hr 02/01/22 02/01/22 02/01/22 11:35 11:35 11:35 WBC RBC Hgb Hct MCV MCH MCHC RDW Plt Count Neut % (Auto) Lymph % (Auto) [place] % (Auto) Eos % (Auto) Baso % (Auto) Neut # (Auto) Lymph # (Auto) [place] # (Auto) Eos # (Auto) Baso # (Auto) PT INR APTT Sodium Potassium Chloride Carbon Dioxide BUN Creatinine Estimated GFR BUN/Creatinine Ratio Glucose Calcium Total Bilirubin AST ALT Alkaline Phosphatase C-Reactive Protein Total Protein Albumin Globulin Albumin/Globulin Ratio Lipase Urine Color Yellow Urine Appearance Clear Urine pH 6.5 Ur Specific [place] 1.020 Urine Protein 1+ H Urine Glucose (UA) Negative Urine Ketones 3+ H Urine Occult Blood Negative Urine Nitrate Negative Urine Bilirubin 1+ H Ur Bilirubin Confirm Negative Urine Urobilinogen 0.2 Ur Leukocyte Esterase Negative Urine RBC None seen Urine WBC None seen Urine Bacteria None seen Urine Mucus 2+ H Ur Culture Indicated? Cult not indicated Urine Test Negative SARS-CoV-2 (PCR) Negative 02/01/22 02/01/22 02/01/22 11:40 11:40 11:42 WBC 11.0 RBC 5.04 Hgb 14.0 Hct 41.0 MCV 81.4 MCH 27.7 MCHC 34.0 RDW 14.1 Plt Count 220 Neut % (Auto) 80.9 H Lymph % (Auto) 11.5 L [place] % (Auto) 7.0 Eos % (Auto) 0.5 L Baso % (Auto) 0.1 Neut # (Auto) 8900 H Lymph # (Auto) 1300 [place] # (Auto) 800 Eos # (Auto) 100 Baso # (Auto) 0 PT INR APTT Sodium Potassium Chloride Carbon Dioxide BUN Creatinine Estimated GFR BUN/Creatinine Ratio Glucose Calcium Total Bilirubin AST ALT Alkaline Phosphatase C-Reactive Protein 1.1 H Total Protein Albumin Globulin Albumin/Globulin Ratio Lipase Cancelled Urine Color Urine Appearance Urine pH Ur Specific [place] Urine Protein Urine Glucose (UA) Urine Ketones Urine Occult Blood Urine Nitrate Urine Bilirubin Ur Bilirubin Confirm Urine Urobilinogen Ur Leukocyte Esterase Urine RBC Urine WBC Urine Bacteria Urine Mucus Ur Culture Indicated? Urine Test SARS-CoV-2 (PCR) 02/01/22 02/01/22 11:42 11:42 WBC RBC Hgb Hct MCV MCH MCHC RDW Plt Count Neut % (Auto) Lymph % (Auto) [place] % (Auto) Eos % (Auto) Baso % (Auto) Neut # (Auto) Lymph # (Auto) [place] # (Auto) Eos # (Auto) Baso # (Auto) PT 13.6 H INR 1.2 APTT 36 Sodium 140 Potassium 3.7 Chloride 97 L Carbon Dioxide 27 BUN 15 Creatinine 0.91 Estimated GFR > 60 BUN/Creatinine Ratio 16.5 Glucose 100 Calcium 10.2 Total Bilirubin 0.7 AST 37 H ALT 20 Alkaline Phosphatase 62 C-Reactive Protein Total Protein 8.8 H Albumin 5.2 H Globulin 3.6 Albumin/Globulin Ratio 1.4 Lipase 2310 H Urine Color Urine Appearance Urine pH Ur Specific [place] Urine Protein Urine Glucose (UA) Urine Ketones Urine Occult Blood Urine Nitrate Urine Bilirubin Ur Bilirubin Confirm Urine Urobilinogen Ur Leukocyte Esterase Urine RBC Urine WBC Urine Bacteria Urine Mucus Ur Culture Indicated? Urine Test SARS-CoV-2 (PCR) Assessment & Plan Assessment & Plan narrative: Ms. Núñez is a 31W with PMH depression who presents with abdominal pain found to have elevated lipase probable secondary to gallstone pancreatitis. 1. Acute gallstone pancreatitis -patient presented to with abdominal pain, elevated lipase consistent with pancreatitis -CT shows gallstones in gallbladder, no evidence of duct dilation, no choledocholithiasis -patient will be ordered for symptomatic pain control, and anti-nausea meds -place on clear liquid diet and advance as tolerated -patient will likely need cholecystectomy, possibly as outpatient 2. Depression -continue sertraline CODE: Full Proxy: Panda Núñez, spouse I have utilized all available resources to reconcile the patient's home medications Time Spent With Patient Critical Care time: I spent a total of [] minutes of critical care time on this patient's care today; this time is exclusive of procedural time. Quality MIPS - Admit I confirm the patient?s Advance Care Plan is present, Code status is documented, Surrogate decision maker is in patient?s record [If Yes, STOP here]: Yes
[2022-02-02 01:00] VITALS: BP 118/79; PULSE 58; RESP 18; TEMP 36.1; O2SAT 100
--- NOTE | 2022-02-02 03:39 | PC.NURSE ---
Pt is AxOx4, independent and cooperative. VSS, pt denies pain and declined her scheduled IV Toradol. Pt slept all night. Continue monitor.
[2022-02-02] MEDS: SODIUM CHLORIDE 0.9% 1,000 ML 100 ML IV (04:22)
[2022-02-02 05:00] VITALS: BP 120/76; PULSE 59; RESP 18; TEMP 36.3; O2SAT 98
[2022-02-02 06:44] LABS: Add Manual Diff / Slide Review NO; Basophils Absolute Auto 0 /uL (0-100); Basophils Percent Auto 0.5 % (0-2); Eosinophils Absolute Auto 300 /uL (0-450); Hematocrit 34.9 % (36-46); Hemoglobin 12.2 g/dL (12.0-16.0); Lymphocytes Absolute Auto 1600 /uL (1100-4500); Mean Corpuscular HGB Conc 34.9 % (30-36); Mean Corpuscular Hemoglobin 28.3 PG (26-34); Mean Corpuscular Volume 81.1 fL (80-100); Monocytes Absolute Auto 700 /uL (0-900); Monocytes Percent Auto 8.2 % (3-14); Neutrophils Absolute Auto 6000 /uL (1500-7000); Neutrophils Percent Auto 69.3 % (50-75); Platelet Count 178 X10^3/uL (150-400); Red Cell Distribution Width 13.9 % (11.6-14.8); White Blood Cell Count 8.6 X10^3/uL (4.5-11.0)
[2022-02-02 06:57] LABS: Alanine Aminotransferase 15 IU/L (<35); Albumin Globulin Ratio 1.4 (1.0-2.8); Alkaline Phosphatase 48 U/L (38-126); Aspartate Aminotransferase 21 IU/L (14-36); BUN Creatinine Ratio 15.5 (6-22); Bilirubin Total 0.8 mg/dL (0.2-1.3); Blood Urea Nitrogen 13 mg/dL (7-17); Calcium 8.7 mg/dL (8.4-10.2); Carbon Dioxide 23 mmol/L (22-32); Chloride 103 mmol/L (98-107); Cholesterol 138 mg/dL (140-199); Estimated Glomerular Filt Rate > 60 mL/min (>60); Globulin 2.8 g/dL (1.7-4.1); Glucose 74 mg/dL (70-100); HDL Cholesterol 23 mg/dL (40-60); HEMOLYSIS < 15 (0-50); LDL Cholesterol Calculated 95 mg/dL (<100); Magnesium 1.9 mg/dL (1.6-2.3); Potassium 3.8 mmol/L (3.4-5.1); Sodium 137 mmol/L (137-145); Total Protein 6.8 g/dL (6.3-8.2); Triglycerides 100 mg/dL (35-150)
[2022-02-02 09:00] VITALS: BP 119/79; PULSE 77; RESP 22; TEMP 36.9; O2SAT 100; O2SAT 98
--- NOTE | 2022-02-02 10:21 | CM.DANOTE ---
Initial DCP Assessment Note Pt is a 31 yo female, resident of [place], presents w/ Vomiting for 48 hours, upper abd pain, admitted observation for medical management and work up. According to conversation in multidisciplinary rounds: Patient found to have acute gallstone pancreatitis, diet being advanced. Either discharge home later today vs stay for consideration for mariana by general surgery PCP: Ayde Stout Payer: Mike Travis Reviewed chart, pt indp and active at baseline, lives w/spouse and young children. Discharge home w/family expected No barriers identified at this time to patient's safe discharge home w/family to assist; close outpatient f/u recommended. CM team will plan to follow closely ROSALVA Felix Discharge Planning/Care Management CM Discharge Assessment Start: 02/02/22 10:17 Freq: Status: Active Protocol: Document 02/02/22 10:17 DORITA (Rec: 02/02/22 10:19 DORITA [id number]) Discharge Planning Assessment Assigned Music Cataloguer ROSALVA Isaacs DPOA/Assigned Designee Name Panda Núñez, spouse Contact Information [phone] Advance Directives? No Advance Directives on File No History Provided By Patient,Medical Record Prior Living Arrangements House Household Members spouse,children Type of transporation used prior to Drives own vehicle admit Independent with ADL's Yes Is patient alert and oriented? Yes Barriers to Discharge No Comment Home w/family expected upon DC Discharge Plan Home Transportation Arrangement Family Referrals Initiated None needed Additional Comment Following closely as medical plan of care unfolds
[2022-02-02] MEDS: ONDANSETRON 4 MG/2 ML INJ IV ×2 (12:38→21:27)
[2022-02-02] MEDS: ACETAMINOPHEN 325 MG TABLET 975 MG PO (12:39)
[2022-02-02 13:00] VITALS: O2SAT 98
[2022-02-02] MEDS: KETOROLAC 10 MG TABLET PO (13:33)
[2022-02-02 17:00] VITALS: BP 117/76; PULSE 78; RESP 20; TEMP 36.9; O2SAT 100
--- NOTE | 2022-02-02 17:24 | PM.PN.1 ---
Subjective Subjective Date Patient Seen: 02/02/22 Interval history: Patient was feeling well, advanced to low fat diet but developed pain and nausea with meals today and was not feeling well after. No fever or chills. No emesis. Exam Vital Signs (past 8 hours): Oxygen Delivery Method Room Air Oxygen Flow Rate 0 Narrative Exam Narrative: GEN: no acute distress, mildly ill appearing young female. HEENT: moist mucous membranes, PERRL NECK: trachea midline, no JVD CV: regular rate and rhythm, no murmurs PULM: clear bilaterally, no wheezes, rhonchi, rales ABD: soft, tender in epigastrum, no rebound/guarding, normal bowel sounds EXT: warm and well perfused, with no edema NEURO: awake, alert, oriented, no focal deficits Objective Labs Result Diagrams: 02/02/22 06:10 02/02/22 06:10 Labs: Laboratory Results - last 24 hr 02/02/22 02/02/22 02/02/22 06:10 06:10 06:10 WBC 8.6 RBC 4.30 Hgb 12.2 Hct 34.9 L MCV 81.1 MCH 28.3 MCHC 34.9 RDW 13.9 Plt Count 178 Neut % (Auto) 69.3 Lymph % (Auto) 19.0 L [place] % (Auto) 8.2 Eos % (Auto) 3.0 Baso % (Auto) 0.5 Neut # (Auto) 6000 Lymph # (Auto) 1600 [place] # (Auto) 700 Eos # (Auto) 300 Baso # (Auto) 0 Sodium 137 Potassium 3.8 Chloride 103 Carbon Dioxide 23 BUN 13 Creatinine 0.84 Estimated GFR > 60 BUN/Creatinine Ratio 15.5 Glucose 74 Calcium 8.7 Magnesium 1.9 Total Bilirubin 0.8 AST 21 ALT 15 Alkaline Phosphatase 48 Total Protein 6.8 Albumin 4.0 Globulin 2.8 Albumin/Globulin Ratio 1.4 Triglycerides 100 Cholesterol 138 L LDL Cholesterol, Calc 95 HDL Cholesterol 23 L [facility] Social History household members: spouse and children Assessment & Plan Assessment & Plan narrative: Ms. Núñez is a 31W with PMH depression who presents with abdominal pain found to have gallstone pancreatitis. 1. Acute gallstone pancreatitis -patient presented to with abdominal pain, elevated lipase consistent with pancreatitis -CT shows gallstones in gallbladder, no evidence of duct dilation, no choledocholithiasis -patient to continue symptomatic pain control, and anti-nausea meds -advanced to low fat diet today but developed nausea and worsening pain after, still overall improved and will keep low fat diet but NPO after midnight for possible OR. -discussed with general surgery, possible cholecystectomy tomorrow. NPO after midnight. 2. Depression -continue sertraline CODE: Full Proxy: Panda Núñez, spouse I have utilized all available resources to reconcile the patient's home medications Time Spent With Patient Critical Care time: I spent a total of [] minutes of critical care time on this patient's care today; this time is exclusive of procedural time.
[2022-02-02 21:30] VITALS: BP 125/86; PULSE 58; RESP 20; TEMP 36.6; O2SAT 100
[2022-02-03] VITALS (14 sets, daily range): BP systolic 109–127; BP diastolic 56–85; PULSE 67–99; RESP 11–20; TEMP 36.3–37.1; O2SAT 96–100; BMI 25.6
--- NOTE | 2022-02-03 | PATH_ITS ---
[facility] Accession Number: [id number] . 01 Material submitted: . gallbladder - GALLBLADDER . 01 Diagnosis: Gallbladder, Cholecystectomy: Chronic cholecystitis with cholelithiasis. Negative for dysplasia or malignancy. [facility] 02/08/2022 0928 Local . 01 Electronically signed: . Frieda Hawkins MD, Pathologist NPI- [id number] . 01 Gross description: . The specimen is received in formalin labeled with the patient's name and gallbladder and consists of an intact gallbladder measuring 7.7 x 2.9 x 2.5 cm. The serosa is green and smooth while the hepatic surface is rough and unremarkable. The cystic duct was received closed with a clamp, is inked blue, and no pericystic lymph node is identified. Opening the specimen reveals the lumen to be filled with dark green viscous bile and multiple pale green faceted calculi measuring up to 1.3 cm in greatest dimension with one obstructing the cystic duct. The mucosa is dark green and velvety with no areas of yellow discoloration, polyps, or lesions identified, and the sue average 0.1 cm thick. Special Education Kindergarten Teacher sections to include the cystic duct margin and full-thickness sections are submitted in cassette A1. ([id number]) /MRV 02/07/2022 1611 Local . 01 Pathologist provided ICD-10: K80.60 . 01 CPT . 365647 Specimen Comment: A courtesy copy of this report has been sent to [facility] Pathology Performed at: 01 [facility] [address] [place] [address] [address], [place], [place] [id number] MD David Rogers MD Phone: [phone]
[2022-02-03 07:04] LABS: Add Manual Diff / Slide Review NO; Alanine Aminotransferase 15 IU/L (<35); Albumin 4.4 g/dL (3.5-5.0); Albumin Globulin Ratio 1.5 (1.0-2.8); Alkaline Phosphatase 53 U/L (38-126); Aspartate Aminotransferase 20 IU/L (14-36); BUN Creatinine Ratio 12.2 (6-22); Basophils Absolute Auto 0 /uL (0-100); Basophils Percent Auto 0.2 % (0-2); Bilirubin Total 0.9 mg/dL (0.2-1.3); Blood Urea Nitrogen 10 mg/dL (7-17); Carbon Dioxide 24 mmol/L (22-32); Chloride 103 mmol/L (98-107); Eosinophils Absolute Auto 300 /uL (0-450); Eosinophils Percent Auto 3.5 % (2-4); Estimated Glomerular Filt Rate > 60 mL/min (>60); Globulin 2.9 g/dL (1.7-4.1); Glucose 80 mg/dL (70-100); HEMOLYSIS < 15 (0-50); Hematocrit 35.4 % (36-46); Hemoglobin 12.4 g/dL (12.0-16.0); Lymphocytes Absolute Auto 1700 /uL (1100-4500); Lymphocytes Percent Auto 21.6 % (25-40); Magnesium 1.9 mg/dL (1.6-2.3); Mean Corpuscular Hemoglobin 28.2 PG (26-34); Mean Corpuscular Volume 80.4 fL (80-100); Monocytes Absolute Auto 600 /uL (0-900); Monocytes Percent Auto 7.3 % (3-14); Neutrophils Absolute Auto 5300 /uL (1500-7000); Neutrophils Percent Auto 67.4 % (50-75); Platelet Count 182 X10^3/uL (150-400); Potassium 3.9 mmol/L (3.4-5.1); Red Cell Distribution Width 13.8 % (11.6-14.8); Sodium 138 mmol/L (137-145); Total Protein 7.3 g/dL (6.3-8.2); White Blood Cell Count 7.8 X10^3/uL (4.5-11.0)
[2022-02-03] MEDS: ONDANSETRON 4 MG/2 ML INJ IV ×2 (07:22→17:35)
--- NOTE | 2022-02-03 12:29 | PM.PREOP ---
Pre-operative Note COVID-19 COVID-19 status: Negative Interval Note History & Physical reviewed/Exam performed by Physician: Yes Changes to H&P: No
--- NOTE | 2022-02-03 12:38 | P.HP_ITS ---
History of Present Illness History of Present Illness Chief complaint: Vomiting for 48 hours, upper abd pain Narrative: Ms. Land states that she has had severe epigastric pain with vomiting and diarrhea for the last few days. She had been to other ERs and felt that she was not helped. She came here last night. Her father had his gallbladder removed. She can't really directly correlate the timing of symptoms with eating any particular foods. She had thought that maybe gluten was the culprit. Her rheumat ologist ran a celiac panel and she has an appointment with a job press feeder scheduled in the next few weeks. She has had pain like this before. She tried eating yesterday and was still having pain with eating. The pain currently is persistent the medication helps but when it wears off she is grooving lathe tender in the right upper quadrant and nauseous. Patient History Comment: Patient has ADHD depression anxiety PCOS she has had a in 2017 as well as a laparoscopy for a left ovarian cyst. Family & Social History Family history unavailable: Yes (Father with gallbladder problems no family history of bleeding or bloodclot) Social History: household members spouse,children Prior Living Arrangements House Safety & Behavioral: Feels Safe in Current Yes Environment Been Physically Hurt or No Threatened By a Person Tobacco & Substance use: Tobacco type cannabis/marijuana alcohol intake frequency holiday/special occasion Substance Use Type marijuana Meds Home Medications and Allergies Home Medications Medication Instructions Recorded Confirmed Type sertraline 50 mg tablet 50 mg PO DAILY 02/01/22 02/01/22 History Allergies Allergy/AdvReac Type Severity Reaction Status Date / Time No Known Drug Allergies Allergy Verified 02/01/22 11:37 Review of Systems Review of Systems ROS: Yes All systems reviewed with the patient and are negative except as otherwise documented Exam Vital Signs (past 8 hours): - 02/03/22 05:00 02/03/22 06:30 02/03/22 09:00 Temperature 97.6 F Pulse Rate 83 Respiratory Rate 18 Blood Pressure 115/85 Pulse Oximetry 98 98 Oxygen Delivery Method Room Air Room Air Oxygen Flow Rate 0 02/03/22 10:00 Temperature 97.9 F Pulse Rate 67 Respiratory Rate 20 Blood Pressure 118/73 Pulse Oximetry 100 Oxygen Delivery Method Oxygen Flow Rate 0 Oxygen Delivery Method Room Air Oxygen Flow Rate 0 Const General: cooperative, healthy appearing and comfortable [facility] Head: normal to inspection and normocephalic Neck Neck: normal visual inspection Resp Effort & Inspection: normal respiratory effort and able to speak in complete sentences Cardio Rate: regular rate Rhythm: regular rhythm GI Palpation: soft and tender (Right upper quadrant tenderness positive Dasilva sign on exam) Skin General: no rashes or lesions noted Extrem General: normal to inspection and full ROM Objective Labs Result Diagrams: 02/03/22 06:41 02/03/22 06:41 Labs: Laboratory Results - last 24 hr 02/03/22 02/03/22 06:41 06:41 WBC 7.8 RBC 4.40 Hgb 12.4 Hct 35.4 L MCV 80.4 MCH 28.2 MCHC 35.0 RDW 13.8 Plt Count 182 Neut % (Auto) 67.4 Lymph % (Auto) 21.6 L [place] % (Auto) 7.3 Eos % (Auto) 3.5 Baso % (Auto) 0.2 Neut # (Auto) 5300 Lymph # (Auto) 1700 [place] # (Auto) 600 Eos # (Auto) 300 Baso # (Auto) 0 Sodium 138 Potassium 3.9 Chloride 103 Carbon Dioxide 24 BUN 10 Creatinine 0.82 Estimated GFR > 60 BUN/Creatinine Ratio 12.2 Glucose 80 Calcium 9.0 Magnesium 1.9 Total Bilirubin 0.9 AST 20 ALT 15 Alkaline Phosphatase 53 Total Protein 7.3 Albumin 4.4 Globulin 2.9 Albumin/Globulin Ratio 1.5 Assessment & Plan Assessment and plan (1) Acute cholecystitis due to biliary calculus: Status: Acute Plan I discussed with Ms. Land the diagnosis of cholecystitis. In this case if pain is persistent we can we do make that diagnosis. I think it is very likely that the gallstones are contributing to this pain. I do recommend gallbladder removal. I discussed the risks benefits and alternatives. One of the alternatives I discussed was if the pain becomes controlled, waiting to see if the gastroenterologists can provide an alternative explanation for her symptoms. Ms. Land is very confident that her gallbladder is likely to be causing this and she understands the risks of surgery. I discussed with her specifically bleeding infection need to return to the hospital for further hospitalizations, IV antibiotics, further procedures, and in some cases surgery to repair damage specifically to the common bile duct. She understands the risks and would like to proceed. Time Spent With Patient Critical Care time: I spent a total of [] minutes of critical care time on this patient's care today; this time is exclusive of procedural time.
--- NOTE | 2022-02-03 14:57 | P.PN_ITS ---
Subjective Subjective Date Patient Seen: 02/03/22 Interval history: Patient was feeling well today, no abdominal pain or nausea since NPO after midnight. Cholecystectomy planned for today. Will need to resume low fat diet after to see if she tolerates meals prior to discharge home. Denies fever, chills, nausea, vomiting today. No shortness of breath or chest pain. Exam Vital Signs (past 8 hours): - 02/03/22 09:00 02/03/22 10:00 02/03/22 13:00 Temperature 97.9 F Pulse Rate 67 Respiratory Rate 20 Blood Pressure 118/73 Pulse Oximetry 98 100 100 Oxygen Delivery Method Room Air Room Air Oxygen Flow Rate 0 Oxygen Delivery Method Room Air Oxygen Flow Rate 0 Narrative Exam Narrative: GEN: no acute distress, mildly ill appearing young female. HEENT: moist mucous membranes, PERRL NECK: trachea midline, no JVD CV: regular rate and rhythm, no murmurs PULM: clear bilaterally, no wheezes, rhonchi, rales ABD: soft, tender in epigastrum, no rebound/guarding, normal bowel sounds EXT: warm and well perfused, with no edema NEURO: awake, alert, oriented, no focal deficits Objective Labs Result Diagrams: 02/03/22 06:41 02/03/22 06:41 Labs: Laboratory Results - last 24 hr 02/03/22 02/03/22 06:41 06:41 WBC 7.8 RBC 4.40 Hgb 12.4 Hct 35.4 L MCV 80.4 MCH 28.2 MCHC 35.0 RDW 13.8 Plt Count 182 Neut % (Auto) 67.4 Lymph % (Auto) 21.6 L [place] % (Auto) 7.3 Eos % (Auto) 3.5 Baso % (Auto) 0.2 Neut # (Auto) 5300 Lymph # (Auto) 1700 [place] # (Auto) 600 Eos # (Auto) 300 Baso # (Auto) 0 Sodium 138 Potassium 3.9 Chloride 103 Carbon Dioxide 24 BUN 10 Creatinine 0.82 Estimated GFR > 60 BUN/Creatinine Ratio 12.2 Glucose 80 Calcium 9.0 Magnesium 1.9 Total Bilirubin 0.9 AST 20 ALT 15 Alkaline Phosphatase 53 Total Protein 7.3 Albumin 4.4 Globulin 2.9 Albumin/Globulin Ratio 1.5 PFSH Social History household members: spouse and children Smoking Status: Never smoker alcohol intake: current Assessment & Plan Assessment & Plan narrative: Ms. Núñez is a 31W with PMH depression who presents with abdominal pain found to have gallstone pancreatitis. 1. Acute gallstone pancreatitis -patient presented to with abdominal pain, elevated lipase consistent with pancreatitis -CT shows gallstones in gallbladder, no evidence of duct dilation, no choledocholithiasis -patient to continue symptomatic pain control, and anti-nausea meds -diet had been advanced to low fat, but had some pain and nausea still. Was NPO since midnight for cholecystectomy today. Will keep overnight, see how she is tolerating meals and possible discharge tomorrow. -discussed with general surgery, cholecystectomy planned for today. 2. Depression -continue sertraline CODE: Full Proxy: Panda Núñez, spouse I have utilized all available resources to reconcile the patient's home medications Dispo: possible discharge home tomorrow if tolerates oral intake after surgery. Time Spent With Patient Critical Care time: I spent a total of [] minutes of critical care time on this patient's care today; this time is exclusive of procedural time.
--- NOTE | 2022-02-03 15:22 | PC.NURSE ---
Pt VSS, afebrile. She denies abdominal pain this a.m. while NPO. She is medicated x1 with prn zofran for nausea per request prior to surgery planned today. She showers and removes body piercings prior to surgery. Pre op nurse arrives to transport patient at approximately 1400 this afternoon.
[2022-02-03] MEDS: CEFAZOLIN 2 GM/100 ML PREMIX 100 ML IV (15:35)
[2022-02-03] MEDS: ACETAMINOPHEN IV 1,000 MG/100 ML VIAL 400 MG IV (15:45)
--- NOTE | 2022-02-03 15:56 | SUR.OPER ---
Supine on padded OR bed, head on pillow, safety belt at thigh. Bilateral arms secured on padded arm board <90 degrees abduction. Legs uncrossed. Padded footboard in place. Tape over blanket to secure lower legs. Gel pad under bilateral heels.
[2022-02-03] MEDS: BUPIVACAINE 0.5% (PF) 30 ML, EPINEPHrine 0.15 MG INJ (16:25)
--- NOTE | 2022-02-03 16:57 | PM.OP.1 ---
Procedure & Clinicians Procedure: Laparoscopic cholecystectomy Same procedure as scheduled: Yes Indications: Acute cholecystitis persistent pain Surgeon: Dayanara Prais Click Yes if Unassisted: Yes Anesthesia Type: General Operative Notes Findings: Patient was taken to the operating room. Preoperative antibiotics administered. Bilateral SCDs in place time-out was performed. Patient was prepped and draped in the usual sterile manner lidocaine infused above the umbilicus. Eleven blade scalpel used to incise the skin above the umbilicus electrocautery was used to carry this down to the anterior abdominal wall fascia. The fascia was grasped with 2 Reji graspers and elevated was entered sharply under direct visualization using an 11 blade scalpel finger sweep assured the correct position of the incision. A Inga trocar was then placed manually into the incision the balloon was in some plated and the abdomen was insufflated. The camera was introduced patient tolerated insufflation well. The camera was used to inspect the abdomen and no other abnormalities were seen but there was adhesions of the omentum to the gallbladder indicating the presence of chronic inflammation. The accessory trocars were placed in the usual positions after infusion of lidocaine. The dome of the gallbladder was grasped and retracted cephalad the dissection of the critical view then was commenced. There was a strap of tissue on the anterior part of the gallbladder which I grasped and pulled initially that resulted in bleeding. A hemostat clip was placed on that tissue and the bleeding stopped. The rest of the dissection of the critical view progress without event. The cystic duct was identified and seen for multiple positions entering directly into the gallbladder the triangle was cleared out very carefully below there was a cystic artery very close in proximity to the cystic duct this artery was doubly clipped and ligated after that 2 clips were placed on the stay side of the cystic duct 1 above and the duct was ligated. Next attention was turned to relieving the gallbladder from the liver bed using electrocautery the gallbladder was then placed into an Endo-Catch bag and removed through the umbilical port site the operative sites were inspected for hemostasis 1 last time. This clips were secure and the dissection site was dry. The accessory trocars were removed under direct visualization the patient was then flattened and the pneumoperitoneum was released the umbilical trocar was removed last 2 previously placed 0 Vicryl sutures on a UR 6 needle were closed down in a figure of 8 and tied to close the fascial defect at the umbilicus the skin of the accessory trocars as well as the skin at the umbilicus was closed with a running Monocryl and dressed with Steri-Strips The patient tolerated the procedure well there were no complications EBL was minimal and she went in good condition to the postoperative care unit she may be discharged home tomorrow after tolerating regular food for breakfast and when her pain is controlled with oral pain medicines. I generally will discharge people with a prescription for pain medicine and follow-up in 7-10 days in my office.
--- NOTE | 2022-02-03 17:21 | SUR.PHASEI ---
Report called to
--- NOTE | 2022-02-03 17:38 | SUR.PHASEI ---
Patient c/o itching, VVO received for benadryl. Patient provided pudding before the po med but she c/o nausea after a few bites. Zofran provided.
--- NOTE | 2022-02-03 18:02 | SUR.PHASEI ---
Patient transferred to the floor and was able to transfer herself from the stretcher to the bed independently. VS stable. Report given to Carol. Abdominal sites open to air, with scant sero-sang drainage present. IV saline locked. Patient reported nausea improved and itching was improving.
[2022-02-03] MEDS: HYDROCODONE/ACET 5/325 TABLET 1 TAB PO (18:43)
[2022-02-03] MEDS: IBUPROFEN 600 MG TABLET PO (18:44)
[2022-02-03] MEDS: diphenhydrAMINE 25 MG TABLET 12.5 MG PO (18:45)
--- NOTE | 2022-02-03 18:45 | PC.NURSE ---
pt returned from PACU at 1750. She is A&Ox3, VSS, afebrile on RA. +BS. abdominal tenderness. She also c/o of itchiness. She rates pain 5/10 and is medicated with scheduled ibuprofen, and benadryl as well as prn hydrocodone. She tolerates pudding this evening and denies n/v. She is able to ambulate and void with SBA. Bed alarm on and call light in reach. Continuous monitoring.
[2022-02-04] MEDS: IBUPROFEN 600 MG TABLET PO ×2 (01:14→12:15)
[2022-02-04 01:21] VITALS: BP 103/64; PULSE 60; RESP 18; TEMP 36.2; O2SAT 99
--- NOTE | 2022-02-04 04:43 | PC.NURSE ---
Pt is AxOx4, independent and cooperative. VSS, pt's pain is controlled well with her scheduled Ibuprofen. Pt ate some food last night and tolerated well. Incision site looks great. No problem identified. Pt slept all night. Continue monitor.
[2022-02-04 04:53] VITALS: BP 101/61; PULSE 78; RESP 18; TEMP 36.2; O2SAT 98
[2022-02-04 06:00] VITALS: O2SAT 96
--- NOTE | 2022-02-04 08:27 | PM.DS.1 ---
History of Present Illness History of Present Illness Date Patient Seen: 02/04/22 Chief complaint: Vomiting for 48 hours, upper abd pain Narrative: Per history and physical: Ms. Núñez is a 31W with PMH of depression who presents to the hospital with nausea, vomiting, abdominal pain. She was in a normal state of health but over the last couple days have developed first nausea, diarrhea, vomiting, and then started developing epigastric pain. She had no fevers/chills. She has no sick contacts. She presented to the ED at another hospital yesterday and received symptomatic medications with ativan, zofran and was ultimately discharged home. She continued to feel poorly with continued abdominal pain, nausea, and vomiting and so presented to the hospital today. She does not drink alcohol. She has no new medications, or herbal supplements. Only medication sertraline. In the ED workup was done, vitals notable for temp 99.6, heart rate 104, blood pressure 147/89. Labs notable for WBC 11, hgb 14, plts 220. Lipase 2310. AST 37/ALT 20, bili 0.7. Ultrasound abdomen showed cholelithiasis with no biliary duct dilation. CT showed normal pancreas, cholelithiasis with no cholecystitis. She was given fluids, valium, dilaudid, toradol and admitted for further treatment. Discharge Providers Provider Date of admission: 02/01/22 16:24 Discharge Date: 02/04/22 Primary care physician: Ayde Stout MD Consults: 02/02/22 17:39 Consult to General Surgery Routine Comment: Consulting Provider: Clay Pham Reason for consultation: gallstone pancreatitis, cholecystectomy Discharge provider: Lavern Dong MD Summary Hospital Course Hospital Course: 31-year-old female who presented to the emergency department with severe epigastric pain, vomiting and diarrhea. She was found have evidence of cholelithiasis and an elevated lipase consistent with gallstone pancreatitis. She was admitted for analgesics and surgical care. She was taken to the operating room on February 03 and underwent a laparoscopic cholecystectomy. Postoperatively, her pain has been well controlled and diet was advanced to regular. She has tolerated that well. On the date of discharge, she reported she was feeling well, no nausea, some abdominal pain, but well controlled. She requested discharge home Status at Discharge Cognitive/behavioral status at discharge: at baseline, oriented Functional status at discharge: independent ambulation Overall status at discharge: patient is progressing back to baseline Exam Vital Signs (past 8 hours): - 02/04/22 01:21 02/04/22 02:00 02/04/22 06:00 Temperature 97.2 F L Pulse Rate 60 Respiratory Rate 18 Blood Pressure 103/64 Pulse Oximetry 99 96 Oxygen Delivery Method Room Air Room Air Oxygen Flow Rate 0 02/04/22 04:53 Temperature 97.1 F L Pulse Rate 78 Respiratory Rate 18 Blood Pressure 101/61 Pulse Oximetry 98 Oxygen Delivery Method Oxygen Flow Rate 0 Oxygen Delivery Method Room Air Oxygen Flow Rate 0 Narrative Exam Narrative: GEN: Very pleasant adult female, Alert and oriented x 3, NAD HEENT:NC, Face symmetric CHEST: Respiratory excursions symmetric, CTAB CV: RRR, no M/R/G ABD: Soft, mildly diffusely tender/ND, incision sites clean/dry/intact, BT present in all 4 quadrants, no organomegaly or masses EXTR: warm, well perfused, no C/C/E SKIN: warm and dry, no rash NEURO: Alert and oriented x 3, nonfocal Objective Labs Result Diagrams: 02/03/22 06:41 02/03/22 06:41 [facility] Social History household members: spouse and children Smoking Status: Never smoker alcohol intake: current Discharge Plan Discharge Plan Patient Disposition: Home Provider Discharge Comment: Eat and drink as tolerated. Increase your activity level each day. Return to the ED for fevers/nausea/vomiting/redness/drainage from surgical wound. Discharge orders & Medications Prescriptions: New hydrocodone-acetaminophen 5-325 mg Tablet 2 tab PO Q6HR PRN (Reason: Pain, Severe (7-10)) Qty: 30 0RF ibuprofen 600 mg Tablet 600 mg PO Q6HR Qty: 30 0RF Continued sertraline 50 mg Tablet 50 mg PO DAILY Follow up/Referrals: yAde Stout MD [Primary Care Provider] - Dayanara Paris MD [Physician] - (post op follow up in 7-10 days. ) Diet/Activity/Treatments Diet: Regular Activity: May shower. Pat wounds dry. No tub baths for 2 weeks. No lifting more than 30 lb for 2 weeks. Most patients take 1-2 weeks off of work. Please contact the office if you need paperwork. Visit Report/Discharge Packet Instructions: DI for Laparoscopy, DI for Prescription Opioid Use Discharge Data Primary Care Provider: Ayde Stout
--- NOTE | 2022-02-04 09:28 | PC.NURSE ---
Patient denies pain at this time. She has small incisions to her upper r.quaadrant and abdomen. All cdi s any drainage. Patient is resting comfortably, bowel tones are positive. She will be discharged today.
[2022-02-04 09:36] VITALS: BP 126/85; PULSE 77; RESP 18; TEMP 36.6; O2SAT 100
--- NOTE | 2022-02-04 14:21 | CM.DPNOTE ---
DC Note DC home w/family today and close outpatient f/u. No needs identified from this CM team JW
--- NOTE | 2022-02-27 09:15 | PM.CALLCOV.1 ---
Call Coverage Note Note Narrative of Care Provided: About 2 x per week. Stomach hurting then emesis of bile first thing in the morning. Started about 2 weeks ago. Was not happening at the time of follow up. Feels better after emesis in AM. Eating normally. No correlation noted with certain foods. No issues during the day. BMs normal. States there is no way she could be . Now realizes that it started about the time she ran out of [employer]. Will send through a refill to [facility] and she will call back if symptoms do not improve in a week.
== END 2022-02-04 13:45 | disposition home or self-care (01) | DRG 417 ==
LOC: ED 12:28 → AC 17:01
PROVIDERS: Emergency Medicine; Surgery; Admitting Provider Internal Medicine; Emergency Provider Nurse Practitioner Critical Care Medicine; PCP Student in an Organized Health Care Education/Training Program; Referring Provider Nurse Practitioner Critical Care Medicine; Visit Provider Internal Medicine
PROC: 0FT44ZZ Resection of Gallbladder, Percutaneous Endoscopic Approach (ICD-10-PCS; CPT 47562; principal; 2022-02-03 16:15)
DX: K80.00 Calculus of gallbladder with acute cholecystitis without obstruction (principal); K85.10 Biliary acute pancreatitis without necrosis or infection; F32.A Depression, unspecified; Z20.822 Contact with and (suspected) exposure to COVID-19
CPT/HCPCS: 00790; 36415; 47562; 74177; 76705; 80053; 80061; 81001; 81025; 83690; 83735; 85025; 85610; 85730; 86140; 87635; 96361; 96374; 96375; 99233; 99284; C9803; C9113; J0131; J0171; J0690; J1100; J1170; J1885; J2405; J2704; Q9967

== ENCOUNTER 2022-08-16 09:05 | Emergency (ER) | payer OTHER, SELFPAY ==
[2022-08-16] VITALS (15 sets, daily range): BP systolic 99–129; BP diastolic 61–81; PULSE 66–87; RESP 16–18; TEMP 36.4; O2SAT 97–100
--- NOTE | 2022-08-16 | DI.US.S_ITS ---
PROCEDURE: US ABDOMEN LIMITED INDICATIONS: RUQ PAIN TECHNIQUE: Real-time scanning was performed of the abdominal and retroperitoneal organs, with image documentation. COMPARISON: [facility], , US ABDOMEN LIMITED, 02/01/2022, 13:29. FINDINGS: Liver: Liver is normal in size and homogeneous in echotexture. Main portal vein is patent and show normal hepatopetal flow. Gallbladder: There is prior cholecystectomy. No abnormality is seen in gallbladder fossa. Biliary ducts: Intrahepatic bile ducts are non-dilated. Extrahepatic bile duct caliber measures 3.4 mm. Normal is 6-7 mm or less in diameter, or 10 mm or less post-cholecystectomy. Pancreas: Visualized portions of the pancreas are sonographically normal. IMPRESSION: Prior cholecystectomy. No abnormality is seen in right upper quadrant abdomen. Dictated by: Rosalio Orta M.D. on 08/16/2022 at 11:51 Approved by: Rosalio Orta M.D. on 08/16/2022 at 11:52
[2022-08-16] MEDS: ONDANSETRON 4 MG/2 ML INJ IV ×2 (09:30→14:19)
[2022-08-16] MEDS: PANTOPRAZOLE 40 MG VIAL IV (09:30)
[2022-08-16] MEDS: LACTATED RINGERS 1,000 ML 1000 ML IV (09:30)
--- NOTE | 2022-08-16 09:31 | ED_ITS ---
HPI - General Adult General Chief complaint: Nausea/Vomiting/Diarrhea Stated complaint: V/T-1 throwing up bile Time Seen by Provider: 08/16/22 09:15 History of Present Illness HPI narrative: 32-year-old female nonsmoker with a history of GERD, gallbladder pancreatitis presents with her in the chief complaint of nausea, vomiting and upper abdominal pain for the past 24 hours. She states there has been some other family members with nausea and vomiting but they have all improved. She denies any fever or chills. She is not dizzy nor weak or lightheaded. She denies any new medications, recent antibiotics or bad food. She states the pain in her upper abdomen seems to be relatively persistent and does improve after an episode of vomiting. She has had least 1 loose stool. Related Data Home Medications Medication Instructions Recorded Confirmed sertraline 50 mg tablet 50 mg PO DAILY 02/01/22 02/14/22 Previous Rx's Medication Instructions Recorded ibuprofen 600 mg tablet 600 mg PO Q6HR #30 tabs 02/04/22 esomeprazole magnesium 20 mg 20 mg PO DAILY #30 caps 02/27/22 capsule,delayed release hydrocodone 5 mg-acetaminophen 325 1 tab PO Q4-6H PRN pain #10 tabs 08/16/22 mg tablet ondansetron 4 mg disintegrating 4 mg PO TID-QID PRN nausea and 08/16/22 tablet vomiting #10 tabs pantoprazole 40 mg tablet,delayed 40 mg PO DAILY #30 tabs 08/16/22 release (Protonix) Allergies Allergy/AdvReac Type Severity Reaction Status Date / Time No Known Drug Allergies Allergy Verified 08/16/22 10:07 Review of Systems Review of Systems Narrative: GENERAL: Denies chills, fatigue, malaise, fever, sweats. HEENT: Denies sinus pain, ear pain, sore throat, difficulty swallowing, dizziness. RESPIRATORY: Denies dyspnea, cough, wheezing, hemoptysis, sputum. CARDIOVASCULAR: Denies chest pain, palpitations, orthopnea, edema, GASTROINTESTINAL: See HPI : Denies dysuria, frequency, incontinence, hematuria, urinary retention. MUSCULOSKELETAL: denies weakness, joint pain, or bony pain SKIN: Denies rash, skin lesions, or other NEUROLOGIC: Denies weakness, headache, numbness, change in speech, confusion, seizures, incoordination. PSYCHIATRIC: No concerning psychosocial issues. 12 point review of systems is negative except for those stated above Patient History Medical History Acute cholecystitis due to biliary calculus Cholelithiases Intractable nausea and vomiting Pancreatitis, acute Social History household members: spouse and children Smoking Status: Never smoker alcohol intake: current Smoking Status: Never smoker alcohol intake frequency: holidays/special occasions only Substance Use Type: marijuana Exam Narrative Exam Narrative: GENERAL: [32] year old patient appears stated age. Well-developed patient, in mild distress. HEAD: Atraumatic. Normocephalic. EYES: Pupils equal round and reactive. Extraocular motions intact. No scleral icterus. No injection or drainage. ENT: Nose without bleeding, purulent drainage. Throat without erythema, tonsillar hypertrophy or exudate. Airway patent. NECK: Trachea midline. Non tender CARDIOVASCULAR: Regular rate and rhythm without murmurs, gallops, or rubs. RESPIRATORY: Clear to auscultation. Breath sounds equal bilaterally. No wheezes, rales, or rhonchi. GASTROINTESTINAL: Abdomen soft, moderate epigastric pain, no right upper quadrant pain, nondistended. Bowel sounds present EXTREMITIES: No edema or joint tenderness. BACK: Nontender without deformity or crepitance. No flank tenderness. NEURO: AOx3. SKIN: No rash or erythema of visible areas Initial Vital Signs Initial Vital Signs: Vital Signs Temperature 97.6 F 08/16/22 09:10 Pulse Rate 78 08/16/22 09:10 Respiratory Rate 18 08/16/22 09:10 Blood Pressure 109/68 08/16/22 09:10 Pulse Oximetry 100 08/16/22 09:10 Oxygen Delivery Method Room Air 08/16/22 09:10 Course Orders Ordered: ED Orders 08/16/22 09:27 UA Complete [Urinalysis and Microscopic] Stat 08/16/22 09:40 Complete Blood Count AUTO DIFF Stat Comprehensive Metabolic Panel Stat Lactate (Lactic Acid) Stat Lipase Stat Magnesium Stat 08/16/22 12:50 CT abdomen pelvis w con Stat Discontinued Medications Lactated Ringer's (Lactated Ringers) 1,000 mls @ 1,000 mls/hr IV BOLUS ONE Stop: 08/16/22 10:14 Last Infusion: 08/16/22 10:52 Dose: 0 mls/hr Documented By: Admin: 08/16/22 09:30 Dose: 1,000 mls/hr Documented By: FAIZAN Ketorolac Tromethamine (Ketorolac 30 Mg/Ml Vial) 15 mg IV NOW ONE Stop: 08/16/22 14:14 Last Admin: 08/16/22 14:19 Dose: 15 mg Documented By: DEVONTE Ondansetron HCl (Ondansetron 4 Mg/2 Ml Inj) 4 mg IV NOW ONE Stop: 08/16/22 09:16 Last Admin: 08/16/22 09:30 Dose: 4 mg Documented By: FAIZAN Ondansetron HCl (Ondansetron 4 Mg/2 Ml Inj) 4 mg IV NOW ONE Stop: 08/16/22 14:14 Last Admin: 08/16/22 14:19 Dose: 4 mg Documented By: DEVONTE Pantoprazole Sodium (Pantoprazole 40 Mg Vial) 40 mg IV NOW ONE Stop: 08/16/22 09:16 Last Admin: 08/16/22 09:30 Dose: 40 mg Documented By: FAIZAN Vital Signs Vital signs: Vital Signs - 8 hr 08/16/22 09:10 08/16/22 12:25 08/16/22 11:00 Temperature 97.6 F Pulse Rate 78 83 Respiratory Rate 18 16 Blood Pressure 109/68 116/67 105/73 Pulse Oximetry 100 98 Oxygen Delivery Method Room Air Room Air 08/16/22 11:00 08/16/22 11:30 08/16/22 12:00 Temperature Pulse Rate 87 72 73 Respiratory Rate Blood Pressure Pulse Oximetry 100 100 100 Oxygen Delivery Method 08/16/22 12:23 08/16/22 12:23 08/16/22 12:30 Temperature Pulse Rate 76 Respiratory Rate Blood Pressure 116/67 101/61 Pulse Oximetry 100 Oxygen Delivery Method 08/16/22 12:30 08/16/22 13:00 08/16/22 13:00 Temperature Pulse Rate 68 71 Respiratory Rate Blood Pressure 106/62 Pulse Oximetry 100 100 Oxygen Delivery Method 08/16/22 13:30 08/16/22 13:30 08/16/22 14:00 Temperature Pulse Rate 80 Respiratory Rate Blood Pressure 99/63 129/64 Pulse Oximetry 99 Oxygen Delivery Method Room Air 04/12/23 14:00 Temperature Pulse Rate 80 Respiratory Rate Blood Pressure Pulse Oximetry 100 Oxygen Delivery Method Medical Decision Making Lab Data 08/16/22 09:40 08/16/22 09:40 Labs: Lab Results 08/16/22 08/16/22 08/16/22 Range/Units 09:27 09:40 09:40 WBC 10.5 (4.5-11.0) X10^3/uL RBC 4.62 (4.0-5.2) X10^6/uL Hgb 13.3 (12.0-16.0) g/dL Hct 38.6 (36-46) % MCV 83.7 (80-100) fL MCH 28.9 (26-34) PG MCHC 34.5 (30-36) % RDW 14.5 (11.6-14.8) % Plt Count 195 (150-400) X10^3/uL Neut % (Auto) 84.7 H (50-75) % Lymph % (Auto) 8.4 L (25-40) % [place] % (Auto) 6.2 (3-14) % Eos % (Auto) 0.4 L (2-4) % Baso % (Auto) 0.3 (0-2) % Neut # (Auto) 8900 H (5513-3619) /uL Lymph # (Auto) 900 L (3667-1368) /uL [place] # (Auto) 700 (0-900) /uL Eos # (Auto) 0 (0-450) /uL Baso # (Auto) 0 (0-100) /uL Sodium 139 (137-145) mmol/L Potassium 3.6 (3.4-5.1) mmol/L Chloride 100 (98-107) mmol/L Carbon Dioxide 29 (22-32) mmol/L BUN 15 (7-17) mg/dL Creatinine 0.72 (0.52-1.04) mg/dL Estimated GFR > 60 (>60) mL/min BUN/Creatinine Ratio 20.8 (6-22) Glucose 103 H (70-100) mg/dL Lactate (0.7-2.1) mmol/L Calcium 9.8 (8.4-10.2) mg/dL Magnesium (1.6-2.3) mg/dL Total Bilirubin 0.7 (0.2-1.3) mg/dL AST 272 H (14-36) IU/L ALT 312 H (<35) IU/L Alkaline Phosphatase 69 (38-126) U/L Total Protein 8.2 (6.3-8.2) g/dL Albumin 4.8 (3.5-5.0) g/dL Globulin 3.4 (1.7-4.1) g/dL Albumin/Globulin Ratio 1.4 (1.0-2.8) Lipase (23-300) U/L Urine Color Yellow Urine Appearance Clear Urine pH 6.5 (4.5-8.0) Ur Specific [place] 1.025 (1.000-1.035) Urine Protein Trace H (Negative) Urine Glucose (UA) Negative (Negative) g/dL Urine Ketones 1+ H (NEGATIVE) Urine Occult Blood Negative (Negative) Urine Nitrate Negative (Negative) Urine Bilirubin Negative (NEGATIVE) Urine Urobilinogen 1.0 (0.2) E.U./dL Ur Leukocyte Esterase Negative (NEGATIVE) Urine RBC None seen (0-5/HPF) Urine WBC None seen (0-5/HPF) Ur Squamous Epith Cells 1-5 /hpf (0-5/HPF) Urine Bacteria None seen (None) Ur Culture Indicated? Cult not indicated 08/16/22 08/16/22 Range/Units 09:40 09:40 WBC (4.5-11.0) X10^3/uL RBC (4.0-5.2) X10^6/uL Hgb (12.0-16.0) g/dL Hct (36-46) % MCV (80-100) fL MCH (26-34) PG MCHC (30-36) % RDW (11.6-14.8) % Plt Count (150-400) X10^3/uL Neut % (Auto) (50-75) % Lymph % (Auto) (25-40) % [place] % (Auto) (3-14) % Eos % (Auto) (2-4) % Baso % (Auto) (0-2) % Neut # (Auto) (4501-4322) /uL Lymph # (Auto) (0293-4165) /uL [place] # (Auto) (0-900) /uL Eos # (Auto) (0-450) /uL Baso # (Auto) (0-100) /uL Sodium (137-145) mmol/L Potassium (3.4-5.1) mmol/L Chloride (98-107) mmol/L Carbon Dioxide (22-32) mmol/L BUN (7-17) mg/dL Creatinine (0.52-1.04) mg/dL Estimated GFR (>60) mL/min BUN/Creatinine Ratio (6-22) Glucose (70-100) mg/dL Lactate 1.5 (0.7-2.1) mmol/L Calcium (8.4-10.2) mg/dL Magnesium 2.0 (1.6-2.3) mg/dL Total Bilirubin (0.2-1.3) mg/dL AST (14-36) IU/L ALT (<35) IU/L Alkaline Phosphatase (38-126) U/L Total Protein (6.3-8.2) g/dL Albumin (3.5-5.0) g/dL Globulin (1.7-4.1) g/dL Albumin/Globulin Ratio (1.0-2.8) Lipase 79 (23-300) U/L Urine Color Urine Appearance Urine pH (4.5-8.0) Ur Specific Grav[place] (1.000-1.035) Urine Protein (Negative) Urine Glucose (UA) (Negative) g/dL Urine Ketones (NEGATIVE) Urine Occult Blood (Negative) Urine Nitrate (Negative) Urine Bilirubin (NEGATIVE) Urine Urobilinogen (0.2) E.U./dL Ur Leukocyte Esterase (NEGATIVE) Urine RBC (0-5/HPF) Urine WBC (0-5/HPF) Ur Squamous Epith Cells (0-5/HPF) Urine Bacteria (None) Ur Culture Indicated? Point of Care Testing Test Results Negative Urine Dip Bedside Urine Glucose Negative Bedside Urine Bilirubin - Negative Bedside Urine Ketone + 15 Urine Specific Gravette 1.025 Bedside Urine Occult Blood - Negative Bedside Urine pH 6.0 Bedside Urine Protein + 30 Bedside Urine Urobilinogen - Negative Bedside Urine Nitrite - Negative Bedside Urine Leukocytes - Negative Esterase Point of care testing: Point of Care Testing Test Results Negative Urine Dip Bedside Urine Glucose Negative Bedside Urine Bilirubin - Negative Bedside Urine Ketone + 15 Urine Specific Gravette 1.025 Bedside Urine Occult Blood - Negative Bedside Urine pH 6.0 Bedside Urine Protein + 30 Bedside Urine Urobilinogen - Negative Bedside Urine Nitrite - Negative Bedside Urine Leukocytes - Negative Esterase MDM Narrative Medical decision making narrative: CC: 32-year-old female with vomiting, diarrhea and abdominal pain Complicating co-morbidities: Data collected from: Patient Medical records reviewed: Prior notes reviewed in our EMR Differential considered, but not limited to: Viral gastroenteritis, panc reatitis, UTI versus other Exam documented above, pertinent findings include: Well-hydrated, heart rate regular, no increased work of breathing, bowel sounds present, abdomen soft but tender in the epigastrium Lab Test results independently reviewed as above. Pertinent findings: No significant leukocytosis or left shift, electrolytes, LFTs and lipase in the normal range Imaging studies independently reviewed: Abdominal ultrasound without significant findings. CT with small amount of fluid in the pelvis which may reflect recent ovarian cyst rupture. Otherwise no significant findings Treatments: Fluids, Zofran, Protonix and ketorolac Re-evaluations: Improves symptoms, pain controlled and tolerating orals Discussion: 32-year-old female with multiple episodes of vomiting, minimal diarrhea, epigastric pain. Patient has an otherwise reassuring history and physical exam and labs as well as response to therapies. No significant findings on imaging. No evidence of any diagnosis requiring a specific or immediate intervention Disposition: see below, along with detailed discharge instructions that have been reviewed with patient as well as indications for ED re-evaluation and additional outpatient follow up Discharge Plan Departure Patient Disposition: Home Clinical Impression: Abdominal pain, Nausea & vomiting Instructions: DI for Abdominal Pain-Adult, Nausea and Vomiting-Adult Activity Restrictions/Additional Instructions: *You have been diagnosed with [abdominal pain] * As we discussed your history and physical exam as well as labs and imaging are very reassuring. There is no evidence of any severe diagnoses that would require a specific or immediate intervention. *What to do: *Please continue to take your regular medications as directed. [x ] New medication prescriptions sent to your pharmacy: [[facility]] *Please follow up with your primary care provider in 2-3 days, call for an appointment. Let them know you were seen in the Emergency Department and that we ask that you be seen in follow up. We will electronically transmit a record of today's note if your PCP is in our system *Please consider a clear liquid diet for the next 24-48 hours and then slowly advance to regular as tolerated. Also, try to avoid alcohol, nicotine, caffeine, spicy, acidic or fatty foods as this may worsen your symptoms *If you do not have a primary care provider please contact the [facility] Resource line at [phone]. They will ask some questions about your medical history and help get you set up with a doctor in the community. *Return to Emergency Department if you should have any new, worsening or concerning symptoms, such as [fever greater than 101 F, shaking chills, worsening pain, persistent vomiting or other bothersome symptoms] Prescriptions: New hydrocodone-acetaminophen 5-325 mg tablet 1 tab PO Q4-6H PRN (Reason: pain) Qty: 10 0RF pantoprazole [Protonix] 40 mg tablet,delayed release (DR/EC) 40 mg PO DAILY Qty: 30 0RF ondansetron 4 mg tablet,disintegrating 4 mg PO TID-QID PRN (Reason: nausea and vomiting) Qty: 10 0RF No Action esomeprazole magnesium 20 mg capsule,delayed release(DR/EC) 20 mg PO DAILY Qty: 30 2RF sertraline 50 mg Tablet 50 mg PO DAILY ibuprofen 600 mg Tablet 600 mg PO Q6HR Qty: 30 0RF Referrals: Ayde Stout MD [Primary Care Provider] - Stand Alone Forms: Patient Portal/API
[2022-08-16 09:49] LABS: Add Manual Diff / Slide Review NO; Basophils Absolute Auto 0 /uL (0-100); Basophils Percent Auto 0.3 % (0-2); Eosinophils Absolute Auto 0 /uL (0-450); Eosinophils Percent Auto 0.4 % (2-4); Hematocrit 38.6 % (36-46); Hemoglobin 13.3 g/dL (12.0-16.0); Lymphocytes Absolute Auto 900 /uL (1100-4500); Lymphocytes Percent Auto 8.4 % (25-40); Mean Corpuscular HGB Conc 34.5 % (30-36); Mean Corpuscular Hemoglobin 28.9 PG (26-34); Mean Corpuscular Volume 83.7 fL (80-100); Monocytes Absolute Auto 700 /uL (0-900); Monocytes Percent Auto 6.2 % (3-14); Neutrophils Absolute Auto 8900 /uL (1500-7000); Neutrophils Percent Auto 84.7 % (50-75); Platelet Count 195 X10^3/uL (150-400); Red Blood Cell Count 4.62 X10^6/uL (4.0-5.2); Red Cell Distribution Width 14.5 % (11.6-14.8); White Blood Cell Count 10.5 X10^3/uL (4.5-11.0)
[2022-08-16 10:04] LABS: Alanine Aminotransferase 312 IU/L (<35); Albumin 4.8 g/dL (3.5-5.0); Albumin Globulin Ratio 1.4 (1.0-2.8); Alkaline Phosphatase 69 U/L (38-126); Aspartate Aminotransferase 272 IU/L (14-36); BUN Creatinine Ratio 20.8 (6-22); Bilirubin Total 0.7 mg/dL (0.2-1.3); Blood Urea Nitrogen 15 mg/dL (7-17); Calcium 9.8 mg/dL (8.4-10.2); Carbon Dioxide 29 mmol/L (22-32); Chloride 100 mmol/L (98-107); Estimated Glomerular Filt Rate > 60 mL/min (>60); Globulin 3.4 g/dL (1.7-4.1); Glucose 103 mg/dL (70-100); HEMOLYSIS < 15 (0-50); Potassium 3.6 mmol/L (3.4-5.1); Sodium 139 mmol/L (137-145); Total Protein 8.2 g/dL (6.3-8.2)
[2022-08-16 10:05] LABS: Lipase 79 U/L (23-300)
[2022-08-16 10:06] LABS: Lactate (Lactic Acid) 1.5 mmol/L (0.7-2.1)
[2022-08-16 10:13] LABS: Appearance Urine UA CLEAR; Bilirubin Urine UA NEGATIVE (NEGATIVE); Color Urine UA YELLOW; Glucose Urine UA NEGATIVE (Negative); Ketones Urine UA 1+ (NEGATIVE); Leukocyte Esterase Urine UA NEGATIVE (NEGATIVE); Nitrite Urine UA NEGATIVE (Negative); Occult Blood Urine UA NEGATIVE (Negative); Protein Urine UA TRACE (Negative); Specific Gravity Urine UA 1.025 (1.000-1.035)
[2022-08-16 10:14] LABS: pH Urine UA 6.5 (4.5-8.0)
[2022-08-16 10:19] LABS: Bacteria Urine None Seen; Culture Indicated Urine Cult Not Indicated; RBC Urine None Seen (0-5/HPF); Squamous Epithelial Cell Urine 1-5 /HPF (0-5/HPF); WBC Urine None Seen (0-5/HPF)
--- NOTE | 2022-08-16 12:50 | DI.CT.S_ITS ---
PROCEDURE: CT ABDOMEN PELVIS W CON INDICATIONS: severe abdominal pain TECHNIQUE: After the administration of intravenous contrast, axial sections acquired from the lung bases to the pubic symphysis. Coronal and sagittal reformats were performed. For radiation dose reduction, the following was used: automated exposure control, adjustment of mA and/or kV according to patient size. COMPARISON: [facility], CT, CT ABDOMEN PELVIS W CON, 02/01/2022, 14:06. FINDINGS: Lower thorax: The lung bases are clear. Heart size normal. No hiatal hernia. Liver: Normal in size and attenuation. No contour deformity present. Biliary system: Cholecystectomy. No intra or extrahepatic bile duct dilation. Pancreas: Unremarkable without mass or inflammation evident. Spleen: Normal in size and density. Adrenals: Normal morphology and density. Reproductive system: Unremarkable as visualized. Urinary system: Normal renal size and attenuation. Small 2-3 mm nonobstructive calculus noted in the lower pole the right kidney. Urinary bladder unremarkable. Gastrointestinal system: The bowel is unremarkable without evidence of bowel obstruction or inflammation. The stomach appears unremarkable. Appendix: Normal appendix identified. No evidence of appendicitis. Peritoneal spaces: No mesenteric or retroperitoneal adenopathy. No free air. Small amount of free fluid in the pelvis Vasculature: The IVC, aorta and iliac vasculature are unremarkable. Abdominal wall: Abdominal wall intact without evidence of ventral or inguinal hernias. Musculoskeletal: Normal bone mineralization. No acute fractures. IMPRESSION: 1. Small amount of free fluid in the pelvis may reflect recent ovarian cyst rupture. Consider ultrasound pelvis correlation 2. Incidental small 2- 3 mm nonobstructive right renal calculus. No hydronephrosis Approved by: Adalid Myers M.D. on 08/16/2022 at 14:04
[2022-08-16] MEDS: KETOROLAC 30 MG/ML VIAL 15 MG IV (14:19)
== END 2022-08-16 16:44 | disposition home or self-care (01) ==
PROVIDERS: Emergency Provider Emergency Medicine; PCP Student in an Organized Health Care Education/Training Program
DX: R10.10 Upper abdominal pain, unspecified (principal); R11.2 Nausea with vomiting, unspecified
CPT/HCPCS: 36415; 74177; 76705; 80053; 81001; 81003; 81025; 83605; 83690; 83735; 85025; 96374; 96375; 96376; 99284; C9113; J1885; J2405; Q9967

== ENCOUNTER 2022-10-24 23:47 | Emergency (ER) | payer OTHER, SELFPAY ==
[2022-10-24 23:53] VITALS: BP 114/82; PULSE 94; RESP 16; TEMP 36.8; O2SAT 98; BMI 22.4
--- NOTE | 2022-10-24 23:59 | DI.RAD.S_ITS ---
PROCEDURE: XR HAND LT MIN 3V INDICATIONS: smashed hand TECHNIQUE: Three views of the left hand acquired. COMPARISON: None. FINDINGS: Bones: No fractures or dislocations. Carpal bones are normally aligned. No suspicious bony lesions. Soft tissues: No suspicious soft tissue calcifications. IMPRESSION: 1. No fracture or dislocation. Dictated by: David Badillo M.D. on 10/25/2022 at 1:29 Approved by: David Badillo M.D. on 10/25/2022 at 1:32
--- NOTE | 2022-10-25 00:50 | ED.GENADULT ---
HPI - General Adult General Chief complaint: Extremity Injury, Upper Stated complaint: possible broken finger left hand Time Seen by Provider: 10/25/22 00:41 Source: patient Mode of arrival: Ambulatory History of Present Illness HPI narrative: 32-year-old right-hand dominant female who is here for evaluation of an injury that she sustained earlier today when she dropped a 25 lb weight on the proximal end of her left ring finger. She is had bruising and pain since then. No other injuries from the event. Related Data Home Medications Medication Instructions Recorded Confirmed sertraline 50 mg tablet 50 mg PO DAILY 02/01/22 02/14/22 Previous Rx's Medication Instructions Recorded ibuprofen 600 mg tablet 600 mg PO Q6HR #30 tabs 02/04/22 esomeprazole magnesium 20 mg 20 mg PO DAILY #30 caps 02/27/22 capsule,delayed release hydrocodone 5 mg-acetaminophen 325 1 tab PO Q4-6H PRN pain #10 tabs 08/16/22 mg tablet ondansetron 4 mg disintegrating 4 mg PO TID-QID PRN nausea and 08/16/22 tablet vomiting #10 tabs pantoprazole 40 mg tablet,delayed 40 mg PO DAILY #30 tabs 08/16/22 release (Protonix) Allergies Allergy/AdvReac Type Severity Reaction Status Date / Time No Known Drug Allergies Allergy Verified 08/16/22 10:07 Review of Systems Musculoskeletal Musculoskeletal: Reports system reviewed and no additional complaints, except as documented Integumentary/Breasts Skin/Breast: Reports system reviewed and no additional complaints, except as documented Patient History Medical History Acute cholecystitis due to biliary calculus Cholelithiases Intractable nausea and vomiting Pancreatitis, acute Social History household members: spouse and children Smoking Status: Never smoker alcohol intake: current Smoking Status: Never smoker alcohol intake frequency: holidays/special occasions only Substance Use Type: marijuana Exam Initial Vital Signs Initial Vital Signs: Vital Signs Temperature 98.3 F 10/24/22 23:53 Pulse Rate 94 H 10/24/22 23:53 Respiratory Rate 16 10/24/22 23:53 Blood Pressure 114/82 10/24/22 23:53 Pulse Oximetry 98 10/24/22 23:53 Oxygen Delivery Method Room Air 10/24/22 23:53 Skin Other: Bruising located on the dorsum of the left ring finger. Neuro Sensory Exam: no sensory deficits noted Extrem Other: Discomfort with palpation of the proximal phalanx of the left ring finger. Procedures Orthopedic Splinting/Casting Injury #1: Side: left Upper Extremity Injury Location: finger Upper Extremity Immobilizer: aluminum form splint Post splinting neuro exam: no change Post splinting vascular exam: no change Placed by: Nursing Course Orders Ordered: ED Orders 10/24/22 23:59 XR hand LT min 3V Stat Vital Signs Vital signs: Vital Signs - 8 hr 10/24/22 23:53 10/25/22 01:00 Temperature 98.3 F Pulse Rate 94 H 80 Respiratory Rate 16 18 Blood Pressure 114/82 104/65 Pulse Oximetry 98 99 Oxygen Delivery Method Room Air Room Air Medical Decision Making Imaging Data Extremity x-ray #1: My Impression: Nondisplaced linear fracture of the proximal phalanx of the ring finger MDM Narrative Medical decision making narrative: My wet read of the x-ray shows a linear nondisplaced fracture of the proximal left ring finger. This does correspond to the discomfort in bruising noted externally. She was placed in aluminum inform splint described above. No other injuries from the event. We discussed care instructions and return precautions. She expressed understanding and agreement. Discharge Plan Departure Patient Disposition: Home Clinical Impression: Finger fracture, left Instructions: DI for Finger Fracture Activity Restrictions/Additional Instructions: The splint does need to be worn the majority of the time like we discussed. I suspect that after 10-14 days he were going to have some improvement and you can start moving your finger as tolerated. You can take Tylenol or ibuprofen for discomfort. Return to the emergency department new or worsening symptoms. Prescriptions: No Action esomeprazole magnesium 20 mg capsule,delayed release(DR/EC) 20 mg PO DAILY Qty: 30 2RF sertraline 50 mg Tablet 50 mg PO DAILY ibuprofen 600 mg Tablet 600 mg PO Q6HR Qty: 30 0RF hydrocodone-acetaminophen 5-325 mg tablet 1 tab PO Q4-6H PRN (Reason: pain) Qty: 10 0RF pantoprazole [Protonix] 40 mg tablet,delayed release (DR/EC) 40 mg PO DAILY Qty: 30 0RF ondansetron 4 mg tablet,disintegrating 4 mg PO TID-QID PRN (Reason: nausea and vomiting) Qty: 10 0RF Referrals: Ayde Stout MD [Primary Care Provider] - Stand Alone Forms: Patient Portal/API, Work Release Note
[2022-10-25 01:00] VITALS: BP 104/65; PULSE 80; RESP 18; O2SAT 99
== END 2022-10-25 01:11 | disposition home or self-care (01) ==
PROVIDERS: Emergency Provider Emergency Medicine; PCP Student in an Organized Health Care Education/Training Program
DX: S62.645A Nondisplaced fracture of proximal phalanx of left ring finger, initial encounter for closed fracture (principal); W20.8XXA Other cause of strike by thrown, projected or falling object, initial encounter
CPT/HCPCS: 29130; 73130; 99283

== ENCOUNTER 2024-08-21 12:51 | Emergency (ER) | payer OTHER, SELFPAY ==
[2024-08-21 13:00] VITALS: BP 137/83; PULSE 81; RESP 18; TEMP 37.2; O2SAT 100; BMI 20.5
--- NOTE | 2024-08-21 13:03 | DI.RAD.S_ITS ---
PROCEDURE: XR TOE RT MIN 2V INDICATIONS: toe hit wall while running, bruised/painful to walk TECHNIQUE: 3 views of the 5th toe(s) acquired. COMPARISON: None. FINDINGS AND IMPRESSION: There is a questionable nondisplaced lucency at the base of the 5th distal phalanx, correlate with location of tenderness. No dislocation. Mild valgus alignment of the 1st MTP. No suspicious soft tissue calcifications. Dictated by: Mark Anthony Torres M.D. on 08/21/2024 at 14:12 Approved by: Mark Anthony Torres M.D. on 08/21/2024 at 14:13
--- NOTE | 2024-08-21 14:40 | ED_ITS ---
<Statement entered by Nathaniel Crow, - 08/21/24 15:36> Dr. Crow: I was immediately available in the department for consultation. I did not actually see the patient. HPI - Extremity Injury (Lower) General Chief Complaint: Extremity Injury, Lower Stated Complaint: Right foot pain Pinky toe Time Seen by Provider: 08/21/24 13:49 Source: patient Mode of arrival: Ambulatory History of Present Illness HPI Narrative: Ms. Land is a very pleasant 34-year-old female past medical history of congenital bunions who presents to the emergency department for right 5th toe pain since yesterday. Patient was running around her house barefoot when she turned a corner and stubbed her right pinky toe on the corner of the wall. She would immediate pain of the right 5th toe. She comes in today for continued pa in and now bruising and swelling of the toe as well, concerned that it is broken. She still has sensation in the toe, no other injuries, reports that the pain is worse at the tip of the toe. No open wounds. Related Data Home Medications Medication Instructions Recorded Confirmed sertraline 50 mg tablet 50 mg PO DAILY 02/01/22 02/14/22 Previous Rx's Medication Instructions Recorded ibuprofen 600 mg tablet 600 mg PO Q6HR #30 tabs 02/04/22 esomeprazole magnesium 20 mg 20 mg PO DAILY #30 caps 02/27/22 capsule,delayed release hydrocodone 5 mg-acetaminophen 325 1 tab PO Q4-6H PRN pain #10 tabs 08/16/22 mg tablet ondansetron 4 mg disintegrating 4 mg PO TID-QID PRN nausea and 08/16/22 tablet vomiting #10 tabs pantoprazole 40 mg tablet,delayed 40 mg PO DAILY #30 tabs 08/16/22 release (Protonix) Allergies Allergy/AdvReac Type Severity Reaction Status Date / Time No Known Drug Allergies Allergy Verified 08/16/22 10:07 Review of Systems Review of Systems ROS Unobtainable: All systems reviewed & are unremarkable except as noted in HPI and below Patient History Medical History Acute cholecystitis due to biliary calculus Intractable nausea and vomiting Cholelithiases Pancreatitis, acute Social History (Reviewed 08/21/24 @ 14:49 by MAXIMO Archibald household members: spouse and children Smoking Status: Current some day smoker alcohol intake: current Smoking Status: Current some day smoker alcohol intake frequency: holidays/special occasions only Exam Narrative Exam Narrative: GENERAL: 34 year old patient appears stated age. Well-developed patient, in no acute distress. HEAD: Atraumatic. Normocephalic. CARDIOVASCULAR: Regular rate RESPIRATORY: ?Nonlabored respirations. ?Speaking in clear, full sentences. EXTREMITIES: Patient has ecchymosis of the right 5th toe with tenderness to palpation over the right 5th distal phalanx. No deformities of the toe or nail bed involvement. She still has good capillary refill and sensation in the toe, no bruising or tenderness on the remainder of the foot or toes. Strong DP and PT pulses bilaterally brisk capillary refill. NEURO: AOx3. ?Clear speech. ?Moves all 4 extremities appropriately. Sensation intact to light touch on distal 5th toe BL. SKIN: Diffuse ecchymosis right 5th toe, no rashes or open wounds. No subungual hematoma. Initial Vital Signs Initial Vital Signs: Vital Signs Temperature 98.9 F 08/21/24 13:00 Pulse Rate 81 08/21/24 13:00 Respiratory Rate 18 08/21/24 13:00 Blood Pressure 137/83 08/21/24 13:00 Pulse Oximetry 100 08/21/24 13:00 Oxygen Delivery Method Room Air 08/21/24 13:00 Course Orders Ordered: ED Orders 08/21/24 13:03 XR toe RT min 2V Stat Vital Signs Vital signs: Vital Signs - 8 hr 08/21/24 13:00 Temperature 98.9 F Pulse Rate 81 Respiratory Rate 18 Blood Pressure 137/83 Pulse Oximetry 100 Oxygen Delivery Method Room Air MDM - Extremity Injury (Lower) Medical Records Attestation: I reviewed the patient's medical records. Medical records narrative: Finger fracture in the seen ED 10/25/2022 Imaging Data Right Toe X-Ray: My Impression: Agree with radiologist impression Radiologist's Impression: PROCEDURE: XR TOE RT MIN 2V INDICATIONS: toe hit wall while running, bruised/painful to walk TECHNIQUE: 3 views of the 5th toe(s) acquired. COMPARISON: None. FINDINGS AND IMPRESSION: There is a questionable nondisplaced lucency at the base of the 5th distal phalanx, correlate with location of tenderness. No dislocation. Mild valgus alignment of the 1st MTP. No suspicious soft tissue calcifications. MDM Narrative Medical decision making narrative: 34-year-old female past medical history of congenital bunions who presents to the emergency department for right 5th toe pain since yesterday. Differential diagnosis includes but is not limited to fracture, sprain, strain, contusion, dislocation, etc. On exam patient is in no acute distress, nontoxic appearing, vital signs within normal limits. She is bruising of her right 5th toe, no obvious deformities. Right foot is neurovascularly intact. X-ray obtained revealing possible fracture of the 5th toe, lucency is where her pain is therefore we will treat conservatively as 5th toe fracture with akhil tape and orthopedic shoe. Advised follow up with PCP, discussed rice therapy and ibuprofen and acetaminophen. ED return precautions discussed. Patient verbalized understanding of all information is agreeable with the plan. She is ambulatory and stable for discharge home. Discharge Plan Departure Patient Disposition: Home Clinical Impression: Fracture of fifth toe, right, closed Qualifiers: Encounter type: initial encounter Qualified Code(s): S92.501A - Displaced unspecified fracture of right lesser toe(s), initial encounter for closed fracture Instructions: DI for Toe Fracture Activity Restrictions/Additional Instructions: Dear Ms. Land, Thank you for coming to the emergency department. Today you were evaluated for a fracture of your right 5th toe. Please akhil tape these toes together and use the hard bottom shoe for the next few weeks while you are healing. Please follow up with your primary care doctor in the next 2-3 weeks for repeat evaluation, at that time they can determine if you can stop using the shoe. Please take Ibuprofen (Motrin/Advil) or Acetaminophen (Tylenol) for pain. These are available over the counter. You may take Ibuprofen 600 mg every 8 hours with food for pain. You may also take Acetaminophen 650 mg every 4-6 hours for pain. Do not exceed 3000 mg of Tylenol a day as this can cause liver damage. Do not drink alcohol with either of these medications. Please use RICE therapy for your pain in addition to ibuprofen/acetaminophen. Rest the painful area. Ice the area of pain/swelling for at least 15 minutes, 4x a day. Compress the area of swelling using a brace, wrap, or splint if applied. Elevate the painful or swollen extremity by supporting it above the level of the heart with pillows when sitting or laying. Please follow up with your primary care doctor within the next 2-3 days for ER follow-up. (If you do not have a PCP you can call [phone]. ?to schedule an appointment with an [facility] Primary Care Provider) IF YOU DEVELOP ANY NEW OR WORSENING SYMPTOMS, RETURN TO THE ER! Please read the attached instructions, they highlight more specific treatments and interventions for you at home. Thank you for letting me participate in your care, Jenifer Olivier PA-C Prescriptions: No Action esomeprazole magnesium 20 mg capsule,delayed release(DR/EC) 20 mg PO DAILY Qty: 30 2RF sertraline 50 mg Tablet 50 mg PO DAILY ibuprofen 600 mg Tablet 600 mg PO Q6HR Qty: 30 0RF hydrocodone-acetaminophen 5-325 mg tablet 1 tab PO Q4-6H PRN (Reason: pain) Qty: 10 0RF pantoprazole [Protonix] 40 mg tablet,delayed release (DR/EC) 40 mg PO DAILY Qty: 30 0RF ondansetron 4 mg tablet,disintegrating 4 mg PO TID-QID PRN (Reason: nausea and vomiting) Qty: 10 0RF Referrals: Ayde Stout MD [Primary Care Provider] - Stand Alone Forms: Patient Portal/API/Survey, Work Release Note
[2024-08-21 15:41] VITALS: BP 110/69; PULSE 85; RESP 16; O2SAT 98
== END 2024-08-21 15:44 | disposition home or self-care (01) ==
PROVIDERS: Emergency Provider Physician Assistant; PCP Student in an Organized Health Care Education/Training Program
DX: S92.511A Displaced fracture of proximal phalanx of right lesser toe(s), initial encounter for closed fracture (principal); W22.01XA Walked into wall, initial encounter
CPT/HCPCS: 73660; 99281; 99283

== ENCOUNTER → 2024-12-10 18:16 | Outpatient (CLI) | payer OTHER, SELFPAY ==
--- NOTE | 2024-12-10 18:17 | DI.RAD.S_ITS ---
PROCEDURE: XR HIP W PEL IF DONE LT 2V INDICATIONS: Left hip pain after fall TECHNIQUE: Two views of the left hip were acquired. COMPARISON: None. FINDINGS: Bones: There are no osseous abnormalities. SI and hip joints: Normal in width and alignment without arthritic change Soft tissues: No soft tissue swelling, calcification or mass. IMPRESSION: Normal pelvis Dictated by: Tylor Montoya M.D. on 12/11/2024 at 11:30 Approved by: Tylor Montoya M.D. on 12/11/2024 at 11:31
== END ==
PROVIDERS: PCP Student in an Organized Health Care Education/Training Program; Referring Provider Nurse Practitioner Family; Visit Provider Nurse Practitioner Family
DX: M25.552 Pain in left hip (principal)
CPT/HCPCS: 73502